=== PATIENT | male | born 1935 | race Hispanic/Latino ===

== ENCOUNTER 2020-01-09 23:25 | Inpatient (IN) | payer MEDICARE, SELFPAY ==
[~2020-01-09] VITALS: Ht 172.7 cm; Wt 89.1 kg
--- OUTSIDE RECORDS SUMMARY | 2020-01-09 23:27 | XMS REPORT | Clinical Summary ---
Author Author [facility] Organization [facility] Address Unknown Phone Unavailable Care Team Providers Care Risk Consulting Treasury Director Name Role Phone Monserrat Oscar MD PCP Nallely Tucker MD PCP [phone] Allergies Comments Active Allergy Reactions Severity Noted Date Sertraline Nausea and 04/29/2007 Vomiting Stomach ache Simvastatin Nausea and 04/06/2008 Vomiting Medications End Date Status Medication Sig Dispensed Refills Start Date Active ASPIRIN 81 MG TAB None Entered 0 Active lancetsIndications: Use once 1 Box 11 Diet-controlled type 2 daily. 4 diabetes mellitus Active Miscellaneous Medical by 2 Each 0 Supply [facility].(Non-Giovanni 7 g; Combo Route) route Handicap placard. Active Miscellaneous Medical by 2 Each 0 06/03 Supply [facility].(Non-Giovanni 7 g; Combo Route) route Handicap placards for impaired mobility. Active esomeprazole (NEXIUM) 40 TAKE 1 90 capsule 1 1 mg delayed release CAPSULE BY 8 capsuleIndications: MOUTH EVERY Hiatal hernia MORNING BEFORE BREAKFAST. Active codeine-guaiFENesin Take 10 mL by 120 mL 0 09/03 (CHERATUSSIN AC) 10-100 mouth 3 times 9 mg/5 mL syrupIndications: daily as Cough, COPD with needed for exacerbation, Upper Cough or respiratory infection Congestion. with cough and congestion Active clotrimazole (LOTRIMIN) 1 Apply 1-2 30 mL 3 % external drops to 9 solutionIndications: affected Onychia of toe, nails 2 times unspecified laterality a day. Use a nail file to keep nails thin. Treatment may take up to 1 year. 02/25/2020 Active tropicamide (MYDRIACYL) Instill 1 15 mL 0 0.5 % ophthalmic Drop in each 9 solutionIndications: eye once as Diabetes mellitus with needed for up hemoglobin A1c goal of to 1 dose 7.0%-8.0% (for poor retina scan image). Active polyethylene glycol Add lukewarm 4000 mL 0 09/15 (GOLYTELY) 236-22.74-6.74 drinking 0 -5.86 gram oral water to the solutionIndications: fill yrn (4 Positive occult stool liters) and blood test shake. Drink as directed by your doctor.. Active budesonide-formoteroL Administer by 6.9 g 6 (SYMBICORT) 80-4.5 inhalation. 0 mcg/actuation take 2 puffs inhalerIndications: COPD twice daily with exacerbation for copd. Active levothyroxine (SYNTHROID) Take 1 tablet 90 tablet 0 50 mcg tabletIndications: by mouth 0 Subclinical every morning hypothyroidism, Memory (before changes breakfast). Active carbamide peroxide Instill 10 30 mL 0 02 (DEBROX) 6.5 % Drops in 0 DropIndications: Impacted right ear cerumen of right ear daily Wait for 15 minutes and clean with Kleenex. Active blood glucose (PRECISION Use once 50 Each 11 0 XTRA TEST STRIPS) test daily. 0 stripsIndications: Diet-controlled type 2 diabetes mellitus Active ipratropium-albuteroL Inhale 2 1 Inhaler 10 04/0 (COMBIVENT RESPIMAT) Puffs by 0 20-100 mcg/actuation Mist mouth every 6 inhalerIndications: COPD hours as with exacerbation needed for Shortness of Breath (shortness of breath). Active blood glucose test daily Use 50 Each 11 //2 02 stripsIndications: Type 2 daily to test 0 diabetes mellitus with blood sugar. other specified complication, without long-term current use of insulin 12/08/2019 Discontinued (Duplicate Orde r) albuterol-ipratropium Administer 2 1 Inhaler 5 (COMBIVENT) 18-103 Puffs by 3 mcg/actuation inhalation 4 AeroIndications: COPD times daily (chronic obstructive as needed for pulmonary disease) Other (SOB). 12/01/2019 Discontinued (Duplicate Orde r) carbamide peroxide Instill 10 15 mL 0 01 (DEBROX) 6.5 % Drops in each 6 DropIndications: Impacted ear daily. cerumen of right ear 12/01/2019 Discontinued (Reorder) ipratropium-albuterol Inhale by 1 Inhaler 10 09/03 (COMBIVENT RESPIMAT) mouth every 4 9 20-100 mcg/actuation hours as MistIndications: COPD needed with exacerbation (shortness of breath). 12/01/2019 Discontinued (Reorder) budesonide-formoterol Administer by 6.9 g 6 (SYMBICORT) 80-4.5 inhalation. 9 mcg/actuation take 2 puffs inhalerIndications: COPD twice daily with exacerbation for copd. 12/01/2019 Discontinued (Reorder) blood glucose (PRECISION Use once 50 Each 11 0 XTRA TEST STRIPS) test daily. 9 stripsIndications: Diet-controlled type 2 diabetes mellitus 04/25/2019 Discontinued (Therapy comple dontae) levothyroxine (SYNTHROID) Take 1 tablet 30 tablet 2 25 mcg tabletIndications: by mouth 9 Acquired hypothyroidism daily Started 04/25/2019. 09/05/2019 benzonatate (TESSALON Take 1 20 capsule 0 08/04 PERLES) 100 mg capsule by 9 capsuleIndications: COPD mouth 3 times with acute exacerbation daily as needed for up to 7 days for Cough. 09/08/2019 amoxicillin (AMOXIL) 500 Take 1 30 capsule 0 1 mg capsuleIndications: capsule by 9 COPD with acute mouth 3 times exacerbation daily for 10 days. 12/08/2019 Discontinued (Reorder) ipratropium-albuteroL Inhale 2 1 Inhaler 10 11/03 (COMBIVENT RESPIMAT) Puffs by 0 20-100 mcg/actuation Mist mouth every 4 inhalerIndications: COPD hours as with exacerbation needed for Shortness of Breath (shortness of breath). Active Problems Problem Noted Date Nontraumatic rotator cuff tear, right 08/31/2019 Back pain of lumbar region with sciatica 06/03/2015 DM II (diabetes mellitus, type II), controlled 09/10 Edentulism, complete 04/30/2012 Osteopenia of the elderly 04/06/2008 GERD (gastroesophageal reflux disease) 12/25/2006 Atrial fibrillation 12/25/2006 Benign prostatic hyperplasia 05/08/2006 Fatty liver Overview: U/Sof abdomen Cholelithiasis Overview: U/S of abdomen TSH elevation Emphysema of lung HH (hiatus hernia) Acid reflux Sleep apnea Kidney stone Encounters Care Team Description Date Type Specialty Monserrat Oscar MD COPD with exacerbation (Primary Dx); Subclinical hypothyroidism; Memory changes; Preventative health care; Impacted cerumen of right ear; Diet-controlled type 2 diabetes mellitus 12/01/2019 Office Visit [facility] Martell Toribio Jr., MD 11/04/2019 Hospital Encounter Martell Toribio Jr., MD Cataract of left eye, unspecified catara ct type (Primary Dx) 09/14/2019 Orders Only [facility] care maintenance (Leny isha Dx) 09/12/2019 Lab Appointment Lab Monserrat Oscar MD Controlled type 2 diabetes mellitus with complication, without long-term current use of insulin (Primary Dx); Pulmonary emphysema, unspecified emphysema type; Nontraumatic rotator cuff tear, right; TSH elevation; Chronic pain of both shoulders 09/11/2019 Office Visit Family Practice Monserrat Oscar MD Chronic pain of both shoulders 08/29/2019 Ancillary Radiology Procedure Monserrat Oscar MD Shelton, George Jr., MD COPD with acute exacerbation (Primary Dx ); Nephropathy screen; Diabetes mellitus with hemoglobin A1c goal of 7.0%-8.0%; Chronic pain of both shoulders; Leg cramping; Nontraumatic rotator cuff tear, right; Encounter for diabetic foot exam 08/29/2019 Office Visit Family Practice Monserrat Oscar MD Controlled type 2 diabetes mellitus with complication, without long-term current use of insulin (Primary Dx); Atrial fibrillation, unspecified type; Pulmonary emphysema, unspecified emphysema type; TSH elevation; Gastroesophageal reflux disease with esophagitis 04/25/2019 Office Visit Family Practice Monserrat Oscar MD Abdominal pain, epigastric 02/10/2019 Hospital Radiology Encounter Monserrat Oscar MD Benign prostatic hyperplasia without low er urinary tract symptoms (Primary Dx); Controlled type 2 diabetes mellitus with complication, without long-term current use of insulin; Gastroesophageal reflux disease without esophagitis; Pulmonary emphysema, unspecified emphysema type 01/20/2019 Office Visit Family Practice Monserrat Oscar MD Type 2 diabetes mellitus without complic ation, without long- term current use of insulin (Primary Dx); Subclinical iodine-deficiency hypothyroidism 01/19/2019 Orders Only Family Practice Monserrat Oscar MD Diarrhea, unspecified type 01/16/2019 Lab Appointment Lab Audra Gonzales RN 01/16/2019 Nurse Triage after 01/08/2019 Immunizations Name Administration Dates Next Due Albuterol 0.083% (3ml) 08/01/2012, 01/02/2008 Influenza Vaccine 08/24/2011, 08/31/2010, 05/2009, 08/02/2009 (Deferred: Unavailable-Patient to retur n for vaccine later), 08/20/2008, 08/06/2007 Influenza Vaccine, 08/14/2017 (Deferred: Patie nt Refused) Seasonal, Injectable Influenza, 09/20/2018 (Deferred: Patie nt Refused), 06/24/2018 Vaccine<FLUCELVAX>(Multi- (Deferred: Patient Refused ) Dose) PCV 13 (Pnuemococcal 06/24/2018 (Deferred: Patie nt Refused) Conjugated 13 Valent) PPV 23 Pneumococcal 06/21/2009, 02/19/2009, Polysaccaride Td Tetanus, diphtheria 11/06/2005 Toxoids Vaccine Tdap (Tetanus Toxoid, 06/24/2018 Reduced Diphtheria Toxoid And Acellular Pertussis, Absorbed) Tropicamide 0.5% Eye-Yeimi 09/11/2019, 02/13/2017, 15ml Family History Medical History Relation Name Comments Heart Brother age 70 Diabetes Mother Relation Name Status Comments Brother Father Mother Social History Date Tobacco Use Types Packs/Day Years Used Former Smoker Cigarettes 0.5 20 Smokeless Tobacco: Former User Tobacco Cessation: Counseling Given: Yes Comments: 6-7 cigarettes a day, quit smoking 08/10 Drinks/Week oz/Week Comments Alcohol Use No Food Insecurity Answer Date Recorded Within the past 12 months, you worried that your Never chris e 03/14/2018 food would run out before you got money to buy more. Within the past 12 months, the food you bought Never true 03/14/2018 just didn't last and you didn't have mo yong to get more. Sex Assigned at Date Recorded Not on file Industry Job Start Date Occupation Not on file Not on file Not on file Travel End Travel History Travel Start No recent travel history available. Last Filed Vital Signs Reading Time Taken Comments Vital Sign 146/77 12/01/2019 9:06 AM CDT Blood Pressure 78 12/01/2019 9:06 AM CDT Pulse 36.4 C (97.5 F) 12/01/2019 9:06 AM CDT Temperature 18 12/01/2019 9:06 AM CDT Respiratory Rate - - Oxygen Saturation - - Inhaled Oxygen Concentration 70.3 kg (155 lb) 12/01/2019 9:06 AM CDT Weight 172.7 cm (5' 8") 12/01/2019 9:06 AM CDT Height 23.57 12/01/2019 9:06 AM CDT Body Mass Index Plan of Treatment Care Team Description Date Type Specialty Keyonna Yordan B, OD [address] [place] [address] [phone] 03/11/2020 Office Visit Ophthalmology Health Maintenance Due Date Last Done Comments DM Foot Exam (Yearly) 08/29/2020 08/29/2019, 09/03, 10/08/2017, Additional history exists DM Microalbumin Urine 08/29/2020 08/29/2019, 03/03, 02/13/2017, Scrn (Yearly) Additional history exists DM Retinal Exam (Yearly) 09/11/2020 09/11/2019, 0 02/14/2018 (Previously completed - External), 02/13/2017, Additional history exists DM HGBA1C (Yearly) 11/30/2020 12/01/2019, 019, 04/21/2019, Additional history exists IMM Pneumococcal Age 63 Completed 06/21/2009 and Up Procedures Comments Procedure Name Priority Date/Time Associated Diag nosis SYPHILIS SCREEN FOR Routine 12/01/2019 Memory jose ramon nges INFECTION 10:07 AM CDT CBC Routine 12/01/2019 Preventative he alth care 10:07 AM CDT FREE T4 Routine 12/01/2019 Subclinical 10:07 AM CDT hypothyroidism Memory changes THYROID STIMULATING Routine 12/01/2019 Subclinica l HORMONE (TSH) 10:07 AM CDT hypothyroidism Memory changes LIVER PROFILE Routine 12/01/2019 Preventative he alth care 10:07 AM CDT CBC/DIFF Routine 12/01/2019 Preventative he alth care 10:07 AM CDT BASIC METABOLIC PANEL Routine 12/01/2019 Preventa tive health care 10:07 AM CDT HEMOGLOBIN A1C Routine 12/01/2019 Preventative he alth care 10:07 AM CDT VIT D, 25-HYDROXY Routine 12/01/2019 Preventative health care 10:07 AM CDT VITAMIN B12 Routine 12/01/2019 Memory changes 10:07 AM CDT PULMONARY - 6 MINUTE WALK Routine 11/04/2019 EXERCISE TEST - COMPLEX 11:40 AM MMI TEACHER PULMONARY FUNCTION TEST Routine 11/04/2019 11:04 AM MMI TEACHER OVA AND PARASITE EXAM Routine 09/12/2019 Health c are maintenance 9:54 AM MMI TEACHER H. PYLORI STOOL AG Routine 09/12/2019 Health care maintenance 9:54 AM MMI TEACHER FECAL OCCULT BLOOD Routine 09/12/2019 Diarrhea, u nspecified 9:40 AM MMI TEACHER type OPHTHALMOLOGY RETINAL Routine 09/11/2019 Diabetes mellitus with SCAN 10:08 AM MMI TEACHER hemoglobin A1c goal of 7.0%-8.0% XRAY SPINE CER 2-3 AP- Routine 08/29/2019 Chronic pain of both LAT- ODONTOID 1:09 PM MMI TEACHER shoulders XRAY CHEST 2 VIEWS Routine 08/29/2019 COPD with a cute 1:09 PM MMI TEACHER exacerbation PHOSPHORUS Routine 08/29/2019 Leg cramping 12:17 PM MMI TEACHER CBC Routine 08/29/2019 Diabetes [facility] with 12:17 PM MMI TEACHER hemoglobin A1c goal of 7.0%-8.0% CBC/DIFF Routine 08/29/2019 Diabetes [facility] us with 12:17 PM MMI TEACHER hemoglobin A1c goal of 7.0%-8.0% HEMOGLOBIN A1C Routine 08/29/2019 Diabetes [facility] us with 12:17 PM MMI TEACHER hemoglobin A1c goal of 7.0%-8.0% COMPREHENSIVE METABOLIC Routine 08/29/2019 Diabet es mellitus with PANEL 12:17 PM MMI TEACHER hemoglobin A1c goal of 7.0%-8.0% MAGNESIUM Routine 08/29/2019 Leg cramping 12:17 PM MMI TEACHER IRON PROFILE Routine 08/29/2019 Leg cramping 12:17 PM MMI TEACHER MICROALBUMIN / CREATININE Routine 08/29/2019 Neph ropathy screen URINE RATIO 12:17 PM MMI TEACHER DIABETIC FOOT EXAM Routine 08/29/2019 Encounter f or diabetic 11:26 AM MMI TEACHER foot exam CBC Routine 04/21/2019 Preventative he alth care 9:24 AM CDT HEMOGLOBIN A1C Routine 04/21/2019 Preventative he alth care 9:24 AM CDT LIVER PROFILE Routine 04/21/2019 Preventative he alth care 9:24 AM CDT THYROID STIMULATING Routine 04/21/2019 Preventati ve health care HORMONE (TSH) 9:24 AM CDT CBC/DIFF Routine 04/21/2019 Preventative he alth care 9:24 AM CDT FREE T4 Routine 04/21/2019 Preventative he alth care 9:24 AM CDT LIPID PROFILE Routine 04/21/2019 Preventative he alth care 9:24 AM CDT XRAY UPPER GI W AIR Routine 02/10/2019 Abdominal pain, CONTRAST 10:13 AM CDT epigastric after 01/08/2019 Results * CBC/Diff (12/01/2019 10:07 AM CDT) Only the most recent of 3 results within the time period is included. WBC 7.5 4.5 - 12.0 K/uL [facility] RBC 5.09 4.60 - 6.20 M/uL [facility] Hemoglobin 15.0 14.0 - 18.0 g/dL [facility] Hematocrit 47.2 40.0 - 54.0 % [facility] MCV 92.7 (H) 82.0 - 92.0 fL [facility] MCH 29.5 27.0 - 31.0 pg [facility] MCHC 31.8 (L) 32.0 - 36.0 g/dL [facility] RDW 52.0 (H) 35.1 - 43.9 fL [facility] Platelet 190 150 - 400 K/uL [facility] Mean Platelet 11.6 9.4 - 12.4 fL [facility] Volume [facility] Percent NRBC 0.0 % [facility] Neutrophil 62.8 34.0 - 67.9 % [facility] Lymphs 24.0 21.8 - 50.0 % [facility] Monocytes 7.5 5.3 - 12.0 % [facility] Eos 4.4 0.8 - 5.0 % [facility] Basos 0.9 0.2 - 1.2 % [facility] Immature 0.4 0.0 - 0.5 % [facility] Granulocytes [facility] Neutrophils 4.68 1.78 - 5.36 K/uL [facility] (Absolute) [facility] Lymphs 1.79 1.32 - 3.57 K/uL [facility] (Absolute) [facility] Monocytes(Absol 0.56 0.30 - 0.82 K/uL [facility] [place] [facility] Eos (Absolute) 0.33 0.04 - 0.54 K/uL [facility] Baso (Absolute) 0.07 0.01 - 0.08 K/uL [facility] Immature Grans 0.03 0.00 - 0.03 K/uL [facility] (Abs) [facility] Absolute NRBC 0.00 K/uL [facility] Specimen Blood Performing Organization Address [facility] one Number [facility] [address] [place] [address] [phone] * Syphilis Screen for Infection (12/01/2019 10:07 AM CDT) [facility] TPA Negative Negative, Equivocal [facility] Final Report Negative Negative [facility] Specimen Blood Performing Organization Address [facility] one Number [facility] [address] [place] [address] [phone] * Vitamin D, 25-Hydroxycalciferol (12/01/2019 10:07 AM CDT) [facility] Vit D, 27.1 (L) 30.0 - 100.0 ng/mL [facility] 25-Hydroxy [facility] Vitamin D Insufficient (A) Sufficient [facility] Interpretation Comment: [facility] Sufficient: >30.0 Insufficient: 20.0 - 29.9 Deficient: <20.0 Specimen Blood Performing Organization Address [facility] one Number [facility] [address] [place] [phone] * Hemoglobin A1C (12/01/2019 10:07 AM CDT) Only the most recent of 3 results within the time period is included. [facility] Hemoglobin A1c 6.6 (H) 4.3 - 6.1 % [facility] Estimated 143 (H) 70 - 110 mg/dL [facility] Average Glucose [facility] Specimen Blood Performing Organization Address [facility] one Number [facility] [address] [place] [phone] * TSH [Thyroid Stimulating Hormone] (12/01/2019 10:07 AM CDT) Only the most recent of 2 results within the time period is included. [facility] TSH 6.26 (H) 0.45 - 5.33 uIU/mL [facility] Specimen Blood Performing Organization Address [facility] one Number [facility] [address] [place] [address] * Free T4 (12/01/2019 10:07 AM CDT) Only the most recent of 2 results within the time period is included. Free T4 0.93 0.64 - 1.42 ng/dl [facility] Specimen Blood Performing Organization Address [facility] one Number [facility] [address] [place] [address] [phone] * Vitamin B12 (12/01/2019 10:07 AM CDT) Vitamin B12 407 See comment pg/mL [facility] Comment: [facility] Normal: 180-914 pg/mL Intermittent: 145-180 pg/mL Deficient: <=145.0 pg/mL Specimen Blood Performing Organization Address [facility] one Number [facility] [address] [place] [address] * Liver Profile (12/01/2019 10:07 AM CDT) Only the most recent of 2 results within the time period is included. Total Protein 6.7 6.0 - 8.3 g/dL [facility] Bilirubin, 0.7 0.2 - 1.2 mg/dL [facility] Total [facility] Alkaline 139 (H) 34 - 104 U/L [facility] Phosphatase [facility] AST 16 13 - 39 U/L [facility] Direct 0.1 0.0 - 0.2 mg/dL [facility] Bilirubin [facility] ALT 15 7 - 52 U/L [facility] Albumin 4.0 (L) 4.2 - 5.5 g/dL [facility] Specimen Blood Performing Organization Address [facility] one Number [facility] [address] [place] [address] * Basic Metabolic Panel (12/01/2019 10:07 AM CDT) Sodium 139 136 - 145 mmol/L [facility] Potassium 4.9 3.5 - 5.1 mmol/L [facility] Chloride 103 98 - 107 mmol/L [facility] CO2 25 21 - 31 mmol/L [facility] Urea Nitrogen 17.0 7.0 - 25.0 mg/dL [facility] Creatinine 1.2 0.7 - 1.3 mg/dL [facility] Glucose 114 (H) 70 - 110 mg/dL [facility] Calcium 8.7 8.6 - 10.3 mg/dL [facility] GFR, Estimated 57 (L) >=90 mL/min/1.73 m2 [facility] Anion Gap 11 5 - 16 mmol/L [facility] Specimen Blood Performing Organization Address [facility] one Number [facility] [address] [place] [address] * PULMONARY - 6 MINUTE WALK EXERCISE TEST - COMPLEX (11/04/2019 11:40 AM MMI TEACHER) Specimen Performing Organization [facility] one Number SMS * PULMONARY FUNCTION TEST (11/04/2019 11:04 AM MMI TEACHER) Specimen Performing Organization [facility] one Number SMS * H. Pylori Stool Ag (09/12/2019 9:54 AM MMI TEACHER) H. pylori Stool Negative Negative [facility] Ag, EIA Specimen Stool - Feces Narrative Performed At Performed at: [facility] [address] [place] [id number] Pharm Tech: Joselin Leung MD, Phone : [phone] Performing Organization Address [facility] one Number [facility] [address] [place] [address] * Ova & Parasite Exam (09/12/2019 9:54 AM MMI TEACHER) Concentrate No ova/parasites detected on No ova/parasites [facility] Smear concentrate smear seen [facility] Trichrome smear No ova/parasites detected on No ova/parasites [facility] trichrome smear seen [facility] Specimen Stool - Feces Performing Organization [facility] one Number [facility] [address] [place] [address] [phone] * Occult Blood ICT (09/12/2019 9:40 AM MMI TEACHER) Occult Blood Positive (A) Negative [facility] Specimen Stool Performing Organization [facility] one Number [facility] * OPHTHALMOLOGY RETINAL SCAN (09/11/2019 10:08 AM MMI TEACHER) RETINAL ALERT (A) [facility] SCAN-FINAL RESULT Right Diabetic None [facility] Retinopathy Right Macular None [facility] Edema Right Other None [facility] Suspected Conditions Right Image Gradable Image [facility] Quality Left Diabetic None [facility] Retinopathy Left Macular None [facility] Edema Left Other Suspected Cataract (A) [facility] Suspected Conditions Left Image Gradable Image [facility] Quality Specimen Narrative Performed At Retinal Study Result for shankar WALKER 83 y/o, M (: 1935, ) presented to [facility] [place] 2] on 09-11-2019 for a retinal imaging study of the left and r ight eyes. Based on the findings of the study, the following is recommended for YOHAN GODDARD Other Suspected Condition Found: Refer to [facility], next available appointment. For Follow-up at [facility]: The patient can be scheduled into any [facility] that has an ope n booking by calling the appointment center. Interpreting Provider's Comments: No comments provided Right eye findings: Normal Result. Ne gative for Diabetic Retinopathy. Left eye findings: Negative for Diabeti c Retinopathy. Other: Suspected Cataract This result was electronically signed Roshan Rojo MD, , Taxonomy: [id number] on 09-11-2019 05:5 1:02 [facility] time. NOTE: Any pathology noted on this wandy betic retinal evaluation should be confirmed by an appropriate ophthalmic examination. Performing Organization Address City/State/Zipcode Ph one Number [facility] * XRAY CHEST 2 VIEWS (08/29/2019 1:09 PM MMI TEACHER) Specimen Impressions Performed At IMPRESSION: SMS 1. Stable appearance of emphysematous changes. 2. No acute thoracic abnormality. Dictated By: Erlinda Sterling MD, 08/29 4:28 PM I have reviewed the study and agree wit h the findings in this report. Signed By: Devon Degroot MD, 08/29/2019 4:50 PM Narrative Performed At EXAMINATION: XRAY CHEST 2 VIEWS SMS INDICATION: chronic cough COMPARISON: Chest radiograph from 10/08/2017. Chest C T on 09/04/2017. FINDINGS: PA and lateral views TUBES and LINES: None. LUNGS and PLEURA: The lungs are hyper inflated. Scattered areas of scarring, most prominent in the apices. Bibasilar atelectasis. Stable opacity along the lateral aspect of the right mid lung, likely secondary to scarring. No pleural effusion or pne umothorax. HEART AND MEDIASTINUM: The cardiomedi astinal silhouette is unremarkable. BONES AND SOFT TISSUES: Mild multilevel degenerative changes of the thoracic spine. UPPER ABDOMEN: No free air under the di aphragm. Procedure Note Interface, Rad/Mammog In - 08/29/2019 4:55 PM MMI TEACHER EXAMINATION: XRAY CHEST 2 VIEWS INDICATION: chronic cough COMPARISON: Chest radiograph from 10/08/2017. Chest CT on 09/04/2017. FINDINGS: PA and lateral views TUBES and LINES: None. LUNGS and PLEURA: The lungs are hyperinflated. Scattered areas of scarring, most prominent in the apices. Bibasilar atelectasis. Stable opacity along the lateral aspect of the right mid lung, likely secondary to scarring. No pleural effusion or pneumothorax. HEART AND MEDIASTINUM: The cardiomediastinal silhouette is unremarkable. BONES AND SOFT TISSUES: Mild multilevel degenerative changes of the thoracic spine. UPPER ABDOMEN: No free air under the diaphragm. IMPRESSION IMPRESSION: 1. Stable appearance of emphysematous c hanges. 2. No acute thoracic abnormality. Dictated By: Erlinda Sterling MD, 08/29/2019 4:28 PM I have reviewed the study and agree with the findings in this report. Signed By: Devon Degroot MD, 08/29/2019 4:50 PM Performing Organization Address City/State/Zipcode Ph one Number SMS * XRAY SPINE CER 2-3 AP- LAT- ODONTOID (08/29/2019 1:09 PM MMI TEACHER) Specimen Impressions Performed At IMPRESSION: SMS 1. Severe multilevel spondylosis of t he cervical spine. 2. 5 mm anterolisthesis of C5 on C6. Dictated By: David Reyes MD, 08/29/2019 2:01 PM I have reviewed the study and agree wit h the findings in this report. Signed By: Tyler Conrad MD, 08/29/2019 2 :24 PM Narrative Performed At EXAM: Cervical Spine X-ray - 3 views SMS HISTORY:R > L BL shoulder pain/ weaknes s COMPARISON: None DISCUSSION: On the lateral view, the cervical spine is visualized from the level of the skull base to C6. Approximately 5 mm anterolisthesis of C 6 and C7. No displaced fracture or compression de formity is identified. Severe multilevel disc space narrowing and osteophytosis and uncovertebral arthrosis. Moderate multi level facet arthrosis and uncovertebral arthrosis. Severe narrowing and sclerosis at the a tlantoaxial joint.. Procedure Note Interface, Rad/Mammog In - 08/29/2019 2:29 PM MMI TEACHER EXAM: Cervical Spine X-ray - 3 views HISTORY:R > L BL shoulder pain/ weakness COMPARISON: None DISCUSSION: On the lateral view, the cervical spine is visualized from the level of the skull base to C6. Approximately 5 mm anterolisthesis of C6 and C7. No displaced fracture or compression deformity is identified. Severe multilevel disc space narrowing and osteophytosis and uncovertebral arthrosis. Moderate multilevel facet arthrosis and uncovertebral arthrosis. Severe narrowing and sclerosis at the atlantoaxial joint.. IMPRESSION IMPRESSION: 1. Severe multilevel spondylosis of the cervical spine. 2. 5 mm anterolisthesis of C5 on C6. Dictated By: David Reyes MD, 08/29/2019 2:01 PM I have reviewed the study and agree with the findings in this report. Signed By: Tyler Conrad MD, 08/29/2019 2:24 PM Performing Organization Address [facility] Ph one Number SMS * Microalbumin / Creatinine Urine Ratio (08/29/2019 12:17 PM MMI TEACHER) Microalbumin, 6.8 <30.0 mg/dL [facility] Creatinine, 163 20 - 370 mg/dL [facility] Urine 41.7 (H) 0.0 - 30.0 mg/g [facility] Micro[facility]in [facility] Specimen Urine - Voided, urine Performing Organization Address [facility] one Number [facility] [address] [place] [address] * Comprehensive Metabolic Panel (08/29/2019 12:17 PM MMI TEACHER) Sodium 139 136 - 145 mmol/L [facility] Potassium 4.8 3.5 - 5.1 mmol/L [facility] Chloride 101 98 - 107 mmol/L [facility] CO2 28 21 - 31 mmol/L [facility] Glucose 141 (H) 70 - 110 mg/dL [facility] Calcium 9.2 8.6 - 10.3 mg/dL [facility] Urea Nitrogen 14.0 7.0 - 25.0 mg/dL [facility] Creatinine 1.3 0.7 - 1.3 mg/dL [facility] Alkaline 137 (H) 34 - 104 U/L [facility] Phosphatase [facility] ALT 16 7 - 52 U/L [facility] AST 16 13 - 39 U/L [facility] Bilirubin, 1.1 0.2 - 1.2 mg/dL [facility] Total [facility] Total Protein 7.2 6.0 - 8.3 g/dL [facility] GFR, Estimated 53 (L) >=90 mL/min/1.73 m2 [facility] Albumin 4.0 (L) 4.2 - 5.5 g/dL [facility] Anion Gap 10 5 - 16 mmol/L [facility] Specimen Blood Performing Organization Address [facility] one Number [facility] [address] [place] [address] * Phosphorus (08/29/2019 12:17 PM MMI TEACHER) Phosphorus 3.1 2.5 - 5.0 mg/dL [facility] Specimen Blood Performing Organization Address [facility] one Number [facility] [address] [place] [phone] * Magnesium (08/29/2019 12:17 PM MMI TEACHER) Magnesium 2.5 1.9 - 2.7 mg/dL [facility] Specimen Blood Performing Organization Address [facility] one Number [facility] [address] [place] [address] * Iron Profile (08/29/2019 12:17 PM MMI TEACHER) Iron 44 (L) 50 - 212 ug/dL [facility] TIBC 338 250 - 450 ug/dL [facility] % Iron Sat 13 % [facility] Transferrin 241.30 203.00 - 362.00 [facility] mg/dL [facility] Specimen Blood Performing Organization Address [facility] one Number [facility] [address] [place] [address] [phone] * DIABETIC FOOT EXAM (08/29/2019 11:26 AM MMI TEACHER) Narrative Performed At Martell Toribio Jr., MD 12:48 AM Diabetic Foot Exam was performed at 12:41 AM. Right foot sensation is normal, right foot pulses are normal, right foot appearance is abnormal. Left foot sensation is n ormal, left foot pulses are normal, left foot appearance is abnormal. LATE ENTRY FOR FOOT EXAM * Lipid Profile (04/21/2019 9:24 AM CDT) Cholesterol 149.0 <=200.0 mg/dL [facility] Triglyceride 118 <150 mg/dL [facility] HDL 47.0 See Reference Range [facility] Narrative. mg/dL [facility] LDL 78 <100 mg/dL [facility] Comment: [facility] Optimal: < 100.0 mg/dL Near Optimal: 120-129 mg/dL Borderline: 130-159 mg/dL High: 160-189 mg/dL Very High: >=190 mg/dL Patient Yes [facility] Fasting? [facility] Specimen Blood Performing Organization Address City/State/[facility] Ph one Number [facility] [address] [place] [address] * XRAY UPPER GI W AIR CONTRAST (02/10/2019 10:13 AM CDT) Specimen Impressions Performed At IMPRESSION: SMS 1. 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 3. Chronic gastritis. Recommend labor atory testing for H. pylori. This [facility] radiology report is a prelimi nary resident dictation until finalized by an attending. Changes to this preliminary report may occur in an additional preliminary or finaliz ed version. Dictated By: Derrick Ricks MD, 9:51 AM I have reviewed the study and agree wit h the findings in this report. Signed By: Shelby Garzon MD, 02/11/2019 10:57 AM Narrative Performed At EXAM: FLUOROSCOPY BARIUM UPPER GI DOUBLE CONTRAST SM S DATE: 02/10/2019 10:13 AM INDICATION: Nausea after meals, associa dontae with epigastric pain. ADDITIONAL INFORMATION: 83 year old mal e with diabetes who experiences food getting stuck. H. pylori stool Ag negative on 12/12/2013. COMPARISON: Upper GI studies from 06/24 and 04/23/2009 TECHNIQUE: Upper GI was performed using double contrast technique orally. IMG 33/FLT 185 sec/TDAP 28.69 G ycm^2 DISCUSSION: Preliminary radiograph: Normal. Swallowing: Normal. No aspiration. Esophagus: Motility: Normal. 1. 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 Stricture is seen at the low er esophageal sphincter, measuring approximately 14.3 mm. Barium tablet measuring 1.25cm did not pass and remained at the level of the s tricture. Findings are suggestive of chronic gastroesophageal reflux. Hiatal hernia: Small hiatal hernia. Gastroesophageal reflux: Moderate. Stomach: Normal. Adequate volume and distention with normal peristalsis and emptying. No mass or ulcer identifi ed. Prominent gastric folds are compatible with chronic gastritis. Duodenum: Normal. No mass or ulcer id entified. Procedure Note Interface, Rad/Mammog In - 02/11/2019 11:02 AM CDT EXAM: FLUOROSCOPY BARIUM UPPER GI DOUBLE CONTRAST DATE: 02/10/2019 10:13 AM INDICATION: Nausea after meals, associated with epigastric pain. ADDITIONAL INFORMATION: 83 year old male with diabetes who experiences food getting stuck. H. pylori stool Ag negative on 12/12/2013. COMPARISON: Upper GI studies from 06/24/2013 and 04/23/2009 TECHNIQUE: Upper GI was performed using double contrast technique orally. IMG 33/FLT 185 sec/TDAP 28.69 Gycm^2 DISCUSSION: Preliminary radiograph: Normal. Swallowing: Normal. No aspiration. Esophagus: Motility: Normal. 1. Anatomy: Cricopharyngeal bar is seen at the upper esophageal sphincter. Stricture is seen at the lower esophageal sphincter, measuring approximately 14.3 mm. Barium tablet measuring 1.25cm did not pass and remained at the level of the stricture. Findings are suggestive of chronic gastroesophageal reflux. Hiatal hernia: Small hiatal hernia. Gastroesophageal reflux: Moderate. Stomach: Normal. Adequate volume and distention with normal peristalsis and emptying. No mass or ulcer identified. Prominent gastric folds are compatible with chronic gastritis. Duodenum: Normal. No mass or ulcer identified. IMPRESSION IMPRESSION: 1. Incomplete opening of the upper esop hageal sphincter, likley secondary to chronic XUAN 2. Short peptic stricture at the level of lower esophageal sphincter, questionable oesophageal shortening and small hiatal hernia are compatible with chronic gastroesophageal reflux, as demonstrated on this study. 3. Chronic gastritis. Recommend laborat ory testing for H. pylori. This [facility] radiology report is a preliminary resident dictation until finalized by an attending. Changes to this preliminary report may occur in an additional preliminary or finalized version. Dictated By: Derrick Ricks MD, 02/11/2019 9:51 AM I have reviewed the study and agree with the findings in this report. Signed By: Shelby Garzon MD, 02/11/2019 10:57 AM Performing Organization Address City/State/Zipcode Ph one Number SMS after 01/08/2019 Insurance Type Payer Benefit Subscriber ID Effective Phone Address Plan / Dates Group MEDICARE MEDICARE xxxxxxxxxxx 2019-P [id number] [place] [address]
--- OUTSIDE RECORDS SUMMARY | 2020-01-09 23:27 | XMS REPORT ---
Author Author [facility] Organization [facility] Address Unknown Phone Unavailable Care Team Providers Care [employer] Teacher Name Role Phone Unavailable Unavailable Problems This patient has no known problems. Allergies, Adverse Reactions, Alerts This patient has no known allergies or adverse reactions. Medications This patient has no known medications. Encounters Start Date/Time End Date/Time Encounter Type Admission Type [facility] Care Department Encounter ID 2019-12-15 00:00:00 2019-12-15 00:00:00 Outpatient [facility] [id number] 2019-11-04 00:00:00 2019-11-04 00:00:00 Outpatient [facility] [id number] 2019-09-12 09:40:12 2019-09-12 09:40:12 Outpatient [facility] [id number] 2019-09-12 00:00:00 2019-09-12 00:00:00 Outpatient [facility] [id number] 2019-09-11 09:48:53 2019-09-11 09:48:53 Outpatient [facility] [id number] 2019-09-11 09:12:46 2019-09-11 09:12:46 Outpatient [facility] [id number] 2019-08-29 13:26:03 2019-08-29 13:26:03 Outpatient [facility] [id number] 2019-08-29 12:53:01 2019-08-29 12:53:01 Outpatient [facility] [id number] 2019-08-29 12:14:25 2019-08-29 12:14:25 Outpatient [facility] [id number] 2019-08-29 10:35:39 2019-08-29 10:35:39 Outpatient [facility] [id number] 2019-08-29 00:00:00 2019-08-29 00:00:00 Outpatient [facility] [id number] 2019-08-29 00:00:00 2019-08-29 00:00:00 Outpatient [facility] [id number] 2019-07-07 00:00:00 2019-07-07 00:00:00 Outpatient [facility] [id number] 2019-06-16 00:00:00 2019-06-16 00:00:00 Outpatient [facility] [id number] 2019-04-25 15:37:04 2019-04-25 15:37:04 Outpatient [facility] [id number] 2019-04-21 09:24:17 2019-04-21 09:24:17 Outpatient [facility] [id number] 2019-04-21 00:00:00 2019-04-21 00:00:00 Outpatient [facility] [id number] 2019-04-18 09:12:55 2019-04-18 09:12:55 Outpatient [facility] [id number] 2019-02-10 08:24:15 2019-02-10 08:24:15 Outpatient [facility] [id number] 2019-01-20 14:12:45 2019-01-20 14:12:45 Outpatient [facility] [id number] 2019-01-16 12:30:32 2019-01-16 12:30:32 Outpatient [facility] [id number] 2018-12-18 00:00:00 2018-12-18 00:00:00 Outpatient [facility] [id number] 2018-11-01 12:17:56 2018-11-01 12:17:56 Outpatient [facility] [id number] 2018-11-01 11:19:53 2018-11-01 11:19:53 Outpatient [facility] [id number] 2018-10-22 15:28:59 2018-10-22 15:28:59 Outpatient [facility] [id number] 2018-10-22 13:44:50 2018-10-22 13:44:50 Outpatient [facility] [id number] 2018-10-01 09:38:27 2018-10-01 09:38:27 Outpatient [facility] [id number] 2018-09-06 00:00:00 2018-09-06 00:00:00 Outpatient [facility] [id number] 2018-09-06 00:00:00 2018-09-06 00:00:00 Outpatient [facility] [id number] 2018-07-16 09:46:25 2018-07-16 09:46:25 Outpatient [facility] [id number] 2018-07-16 00:00:00 2018-07-16 00:00:00 Outpatient [facility] [id number] 2018-07-02 00:00:00 2018-07-02 00:00:00 Outpatient [facility] [id number] 2018-06-25 00:00:00 2018-06-25 00:00:00 Outpatient [facility] [id number] 2018-06-24 09:43:09 2018-06-24 09:43:09 Outpatient [facility] [id number] 2018-05-01 10:54:24 2018-05-01 10:54:24 Outpatient [facility] [id number] 2018-03-22 00:00:00 2018-03-22 00:00:00 Outpatient [facility] [id number] 2018-03-14 12:33:04 2018-03-14 12:33:04 Outpatient [facility] [id number] 2018-03-14 10:04:02 2018-03-14 10:04:02 Outpatient [facility] [id number] 2017-10-12 00:00:00 2017-10-12 00:00:00 Outpatient [facility] [id number] 2017-10-12 00:00:00 2017-10-12 00:00:00 Outpatient [facility] [id number] 2017-10-08 14:33:56 2017-10-08 14:33:56 Outpatient [facility] [id number] 2017-10-08 13:05:29 2017-10-08 13:05:29 Outpatient [facility] [id number] 2017-09-25 10:33:37 2017-09-25 10:33:37 Outpatient [facility] [id number] 2017-09-14 00:00:00 2017-09-14 00:00:00 Outpatient [facility] [id number] 2017-09-04 11:14:02 2017-09-04 11:14:02 Outpatient [facility] [id number] 2017-08-23 00:00:00 2017-08-23 00:00:00 Outpatient [facility] [id number] 2017-08-14 12:00:44 2017-08-14 12:00:44 Outpatient [facility] [id number] 2017-08-14 10:12:13 2017-08-14 10:12:13 Outpatient [facility] [id number] 2017-04-06 00:00:00 2017-04-06 00:00:00 Outpatient [facility] [id number] 2017-02-13 12:25:14 2017-02-13 12:25:14 Outpatient [facility] [id number] 2017-02-13 11:39:40 2017-02-13 11:39:40 Outpatient [facility] [id number] 2017-02-13 08:53:59 2017-02-13 08:53:59 Outpatient [facility] [id number]
--- OUTSIDE RECORDS SUMMARY | 2020-01-09 23:27 | XMS REPORT | Clinical Summary ---
Author Author [facility] Address Unknown Phone Unavailable Care Team Providers Care Emergency Room Clerk Name Role Phone PCP Unavailable Allergies Not on File Medications Not on file Active Problems Not on file Social History Date Tobacco Use Types Packs/Day Years Used Never Assessed Sex Assigned at Date Recorded Not on file Industry Job Start Date Occupation Not on file Not on file Not on file Travel End Travel History Travel Start No recent travel history available. Last Filed Vital Signs Not on file Plan of Treatment Not on file Results Not on fileafter 01/08/2019 Insurance Payer Benefit Subscriber ID Type Phone Address Plan / Group MEDICARE MEDICARE A xxxxxxxxxx Medicare B
[2020-01-09] MEDS ORDERED: ASPIRIN 81 MG CHEW TAB PO ONE (23:45)
[2020-01-10 00:03] LABS: BASOPHILS # (AUTO) 0.1 (0.0-0.1); BASOPHILS % 0.6 % (0.0-1.0); EOSINOPHILS # (AUTO) 0.1 (0.0-0.4); EOSINOPHILS % 1.4 % (0.0-6.0); HEMATOCRIT 47.6 % (38.2-49.6); HEMOGLOBIN 15.5 g/dL (14.0-18.0); LYMPHOCYTES # (AUTO) 1.6 (1.0-3.2); LYMPHOCYTES % 17.3 % (18.0-39.1); MEAN CORPUSCULAR HEMOGLOBIN 28.8 pg (28-32); MEAN CORPUSCULAR HGB CONC 32.6 g/dL (31-35); MEAN CORPUSCULAR VOLUME 88.5 fL (81-99); MONOCYTES # (AUTO) 0.6 (0.2-0.8); MONOCYTES % 6.1 % (4.4-11.3); NEUTROPHILS % 74.2 % (38.7-80.0); PLATELET COUNT 222 x10e3/uL (140-360); RED BLOOD COUNT 5.38 x10e6/uL (4.3-5.7); RED CELL DISTRIBUTION WIDTH 15.2 % (11.7-14.4)
[2020-01-10 00:10] LABS: INR 0.97; PROTHROMBIN TIME 13.5 seconds (11.9-14.5)
[2020-01-10 00:11] LABS: PARTIAL THROMBOPLASTIN TIME 35.8 seconds (23.8-35.5)
[2020-01-10 00:25] LABS: ALANINE AMINOTRANSFERASE 17 IU/L (0-55); ALBUMIN 4.3 g/dL (3.5-5.0); ALBUMIN/GLOBULIN RATIO 1.3 (0.8-2.0); ALKALINE PHOSPHATASE 148 IU/L (40-150); ANION GAP 16.9 mmol/L (8-16); BLOOD UREA NITROGEN 16 mg/dL (7-26); BUN/CREATININE RATIO 11 (6-25); CALCIUM 9.4 mg/dL (8.4-10.2); CARBON DIOXIDE 23 mmol/L (22-29); CHLORIDE 101 mmol/L (98-107); CREATINE KINASE 104 IU/L (30-200); CREATININE, SERUM 1.42 mg/dL (0.72-1.25); EST GLOMERULAR FILTRATION RATE 47 ML/MIN (60-); GLUCOSE 148 mg/dL (74-118); POTASSIUM 4.9 mmol/L (3.5-5.1); SODIUM 136 mmol/L (136-145)
[2020-01-10] MEDS ORDERED: ASPIRIN 81 MG CHEW TAB PO ONE (00:30)
[2020-01-10 00:38] LABS: BILIRUBIN,URINE NEGATIVE (NEGATIVE); CLARITY,URINE CLEAR (CLEAR); COLOR,URINE YELLOW (YELLOW); KETONES,URINE NEGATIVE (NEGATIVE); LEUKOCYTE ESTERASE ,URINE TRACE (NEGATIVE); NITRITE,URINE NEGATIVE (NEGATIVE); PROTEIN,URINE DIPSTICK TRACE (NEGATIVE); URINE UROBILINOGEN 0.2 mg/dL (0.2 - 1)
[2020-01-10 00:39] LABS: BACTERIA,URINE MODERATE /HPF; EPITHELIAL CELLS,URINE MODERATE /LPF
[2020-01-10] MEDS ORDERED: SODIUM CHLORIDE 0.9% 250ML 250 ML ONE ×2 (00:44→03:01)
[2020-01-10] MEDS ORDERED: SODIUM CHLORIDE 0.9% 500ML 500 ML IV ONE (00:45)
[2020-01-10] MEDS ORDERED: ONDANSETRON HCL INJ 2MG/ML 2ML 2 MG/ML VIAL IV STA (00:50)
--- NOTE | 2020-01-10 00:52 | NUR ---
Patient vomited once. ER MD notified. New orders obtained.
--- NOTE | 2020-01-10 01:24 | NUR ---
Patient placed on 2L NC. O2 saturation dropped to 89% while sleeping. Patient states he has a history of sleep apnea. States pain is better at this time. Will continue to monitor closely. Patient in no distress at this time.
--- NOTE | 2020-01-10 01:30 | Diagnostic Imaging Report ---
EXAMINATION: CHEST SINGLE (PORTABLE) INDICATION: Chest pain COMPARISON: None FINDINGS: TUBES and LINES: None. LUNGS: Hyperexpanded lungs. Mild central bronchial wall thickening. Mild peripheral and lower lung haziness. Prominent central pulmonary vascular tree. PLEURA: No pleural effusion or pneumothorax. HEART AND MEDIASTINUM: Cardiac size is mildly enlarged. Aortic calcifications. BONES AND SOFT TISSUES: No acute osseous lesion. Soft tissues are unremarkable. UPPER ABDOMEN: No free air under the diaphragm. IMPRESSION: Findings of bronchitis. Mild peripheral and lower lung haziness can be due to atelectasis or pneumonia. Hyperexpanded lungs can be seen with obstructive pulmonary disease. Mild cardiomegaly and pulmonary vascular congestion.. Signed by: Jose Chan DO on 01/10/2020 1:27 AM
[2020-01-10] MEDS ORDERED: LEVOTHYROXINE50 MCG PO (01:33)
[2020-01-10] MEDS ORDERED: SYMBICORT 80-10.2 GM INH (01:33)
--- NOTE | 2020-01-10 01:35 | NUR ---
Patient heart rate in 40's at this time and has dropped in 30 range. Patient in no distress. MD notified.
[2020-01-10] MEDS ORDERED: IOPAMIDOL 370 MG/ML 200 ML INFUS..BTL INJ ONE (01:37)
[2020-01-10] MEDS ORDERED: SODIUM CHLORIDE 0.9% 50ML 50 ML ONE (01:37)
--- NOTE | 2020-01-10 02:05 | NUR ---
Patient initially refusing CT scan with IV contrast. ER MD at bedside explaining risks and benefits of scan. Patient agreed to have CT scan done.
--- NOTE | 2020-01-10 04:10 | Diagnostic Imaging Report ---
EXAM: CTA of the Thoracic and Abdominal Aorta and Pelvic Arteries WITH and WITHOUT Contrast INDICATION: Acute onset left-sided chest pain radiating to epigastric COMPARISON: None. TECHNIQUE: Multi-detector CT technology was employed. CTA of the abdomen and pelvis was performed after the administration of IV contrast. IV CONTRAST: 100 mL of Isovue 370 ORAL CONTRAST: None COMPLICATIONS: None RADIATION DOSE: Total DLP: 09/04/2001 mGy*cm Estimated effective dose: (DLP x 0.015 x size factor) mSv CTDIvol has been reviewed. It is below the limits set by the Radiation Protocol Committee (RPC). Dose modulation, iterative reconstruction, and/or weight based adjustment of the mA/kV was utilized to reduce the radiation dose to as low as reasonably achievable. FINDINGS: LINES and TUBES: None. LUNGS AND AIRWAYS: Severe emphysema. Mild central bronchial wall thickening. Hyperexpanded lungs. PLEURA: The pleural spaces are clear. HEART AND MEDIASTINUM: The thyroid gland is normal. No mediastinal, hilar or axillary lymphadenopathy. There is no pericardial effusion. Severe biatrial and right ventricular cavity enlargement. Advanced aortic calcific atherosclerosis but normal diameter. No dissection flap, hematoma or aneurysm. Suspect patent foramen ovale with contrast blush hyperdense contrast from the left atrium injuring the right atrial cavity near the atrial septum ( Series 500 image 54). HEPATOBILIARY: No focal hepatic lesions. No biliary ductal dilation. GALLBLADDER: There are stones in the gallbladder. No wall thickening. SPLEEN: No splenomegaly. PANCREAS: No focal masses or ductal dilatation. ADRENALS: No adrenal nodules KIDNEYS/URETERS: Kidneys enhance symmetrically. No hydronephrosis. No cystic or solid mass lesions. No stones. GI TRACT: No abnormal distention, wall thickening, or evidence of bowel obstruction. Colonic diverticulosis without diverticulitis. Appendix is normal. PELVIC ORGANS/BLADDER: Mild prostatomegaly. LYMPH NODES: No lymphadenopathy. VESSELS: Common origin celiac and SMA without obvious stenosis.. PERITONEUM / RETROPERITONEUM: No free air or fluid. BONES: Moderate anterolisthesis of the L5 vertebral body, transitional anatomy at L5-S1, probable canal stenosis.. Degenerative changes throughout spine. Nonhealed right lower rib fracture. SOFT TISSUES: A 2.4 cm rounded epidermal based fluid density in the left anterior upper lateral chest. IMPRESSION: 1. Calcific aortic atherosclerosis but no acute aortic abnormality. 2. Severe emphysema and bronchitis. Severe biatrial and right ventricular cavity enlargement. Pulmonary hypertension. Suspect patent foramen ovale. 3. 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 4. A 2.4 cm rounded epidermal based fluid density in the left upper anterolateral chest is likely a benign epidermal inclusion cyst, correlate with physical exam. 5. Cholelithiasis without evidence of cholecystitis. 6. Moderate anterolisthesis of the L5 vertebral body, transitional anatomy at L5-S1, probable canal stenosis. Signed by: Jose Chan DO on 01/10/2020 4:06 AM
[2020-01-10] MEDS ORDERED: ENOXAPARIN INJ 80 MG/0.8 ML SYR SC STA (04:14)
[2020-01-10] MEDS ORDERED: ATROPINE SULFATE 0.1 MG/ML 10ML SYR ONE (04:15)
[2020-01-10] MEDS ORDERED: ATROPINE SULFATE 1 MG/ML VIAL IV ONE (04:15)
--- NOTE | 2020-01-10 04:15 | NUR ---
Patient noted to have heart rate as low as 26 on youth nutritional monitor. Patient states he feels fine. MD notified and new orders recieved. Patient remains alert and oriented. States chest pain is alot better than arrival. Will continue to monitor closely.
--- NOTE | 2020-01-10 04:30 | NUR ---
Detailed conversation by Dr. Beck regarding importance of blood thinners at this time. Patient stated he was ok with blood thinners being administered at this time.
[2020-01-10] MEDS ORDERED: ONDANSETRON HCL INJ 2MG/ML 2ML 2 MG/ML VIAL IV PRN (04:45)
--- NOTE | 2020-01-10 04:52 | NUR ---
Patient heart rate dropped again to 20s/30s. Md notified. New orders to started patient on dopamine 5mcg/kg/min.
--- OUTSIDE RECORDS SUMMARY | 2020-01-10 05:24 | XMS REPORT | Clinical Summary ---
Author Author [facility] Organization [facility] Address Unknown Phone Unavailable Care Team Providers Care Patient Assessment Coordinator Name Role Phone Monserrat Oscar MD PCP Nallely Tucker MD PCP [phone] Allergies Comments Active Allergy Reactions Severity Noted Date Sertraline Nausea and 04/29/2007 Vomiting Stomach ache Simvastatin Nausea and 04/06/2008 Vomiting Medications End Date Status Medication Sig Dispensed Refills Start Date Active ASPIRIN 81 MG TAB None Entered 0 Active lancetsIndications: Use once 1 Box 11 Diet-controlled type 2 daily. 4 diabetes mellitus Active Miscellaneous Medical by 2 Each 0 Supply [facility].(Non-Giovanni 7 g; Combo Route) route Handicap placard. Active Miscellaneous Medical by 2 Each 0 06/03 Supply [facility].(Non-Giovanni 7 g; Combo Route) route Handicap placards [...] type 2 diabetes mellitus 12/01/2019 Office Visit [facility] Martell Toribio Jr., MD 11/04/2019 Hospital Encounter Martell Toribio Jr., MD Cataract of left eye, unspecified catara ct type (Primary Dx) 09/14/2019 Orders Only [facility] Health care maintenance (Leny isha Dx) 09/12/2019 [...] Audra Gonzales RN 01/16/2019 Nurse Triage after 01/09/2019 Immunizations Name Administration Dates Next Due Albuterol [...] Type Specialty Keyonna Yordan B, OD [address] [place] [address] [phone] 03/11/2020 Office Visit Ophthalmology Health Maintenance Due [...] 11/04/2019 EXERCISE TEST - COMPLEX 11:40 AM DOOR [employer] PULMONARY FUNCTION TEST Routine 11/04/2019 11:04 AM [employer] OVA AND PARASITE EXAM Routine 09/12/2019 Health c are maintenance 9:54 AM DO[employer] TO [employer] H. PYLORI STOOL AG Routine 09/12/2019 Health care maintenance 9:54 AM [employer] FECAL OCCULT BLOOD Routine 09/12/2019 Diarrhea, u nspecified 9:40 AM [employer] type OPHTHALMOLOGY RETINAL Routine 09/11/2019 Diabetes mellitus with SCAN 10:08 AM [employer] hemoglobin A1c goal of 7.0%-8.0% XRAY SPINE CER 2-3 AP- Routine 08/29/2019 Chronic pain of both LAT- ODONTOID 1:09 PM [employer] TO [employer] shoulders XRAY CHEST 2 VIEWS Routine 08/29/2019 COPD with a cute 1:09 PM [employer] exacerbation PHOSPHORUS Routine 08/29/2019 Leg cramping 12:17 PM [employer] CBC Routine 08/29/[address] [facility] with 12:17 PM [employer] hemoglobin A1c goal of 7.0%-8.0% CBC/DIFF Routine 08/29/[address] [facility] with 12:17 PM [employer] TO [employer] hemoglobin A1c goal of 7.0%-8.0% HEMOGLOBIN A1C Routine 08/29/2019 Diabetes [facility] with 12:17 PM [employer] hemoglobin A1c goal of 7.0%-8.0% COMPREHENSIVE METABOLIC Routine 08/29/2019 Diabet es mellitus with PANEL 12:17 PM [employer] hemoglobin A1c goal of 7.0%-8.0% MAGNESIUM Routine 08/29/2019 Leg cramping 12:17 PM [employer] IRON PROFILE Routine 08/29/2019 Leg cramping 12:17 PM [employer] MICROALBUMIN / CREATININE Routine 08/29/2019 Neph ropathy screen URINE RATIO 12:17 PM [employer] DIABETIC FOOT EXAM Routine 08/29/2019 Encounter f or diabetic 11:26 AM [employer] foot exam CBC Routine 04/21/2019 Preventative he [...] pain, CONTRAST 10:13 AM CDT epigastric after 01/09/2019 Results * CBC/Diff (12/01/2019 10:07 AM CDT) [...] 0.56 0.30 - 0.82 K/uL [facility] [place] Eos (Absolute) 0.33 0.04 - 0.54 K/uL [facility] Baso (Absolute) 0.07 0.01 - 0.08 K/uL [facility] Immature Grans 0.03 0.00 - 0.03 K/uL [facility] (Abs) LAB[facility] Absolute NRBC 0.00 K/uL [facility] Specimen Blood Performing Organization Address [facility] one Number [facility] [address] [place] [address] * Syphilis Screen for Infection (12/01/2019 10:07 AM CDT) [facility] TPA Negative Negative, Equivocal [facility] Final Report Negative Negative [facility] Specimen Blood Performing Organization Address [facility] one Number [facility] [address] [place] [address] [phone] * Vitamin D, 25-Hydroxycalciferol (12/01/2019 10:07 AM CDT) [facility] Vit D, 27.1 (L) 30.0 - 100.0 ng/mL [facility] 25-Hydroxy [facility] Vitamin D Insufficient (A) Sufficient [facility] Interpretation Comment: LABORATORY Sufficient: >30.0 Insufficient: 20.0 - 29.9 Deficient: <20.0 Specimen Blood Performing Organization Address [facility] one Number [facility] [address] [place] [phone] * Hemoglobin A1C (12/01/2019 10:07 AM CDT) Only the most recent of 3 results within the time period is included. [facility] Hemoglobin A1c 6.6 (H) 4.3 - 6.1 % [facility] Estimated 143 (H) 70 - 110 mg/dL [facility] Average Glucose LABORATORY Specimen Blood Performing Organization Address [facility] one Number [facility] [address] [place] [address] [phone] * TSH [Thyroid Stimulating Hormone] (12/01/2019 10:07 AM CDT) Only the most recent of 2 results within the time period is included. [facility] TSH 6.26 (H) 0.45 - 5.33 uIU/mL [facility] Specimen Blood Performing Organization Address [facility] one Number [facility] [address] [place] [address] * Free T4 (12/01/2019 10:07 AM CDT) Only the most recent of 2 results within the time period is included. Free T4 0.93 0.64 - 1.42 ng/dl [facility] Specimen Blood Performing Organization Address [facility] one Number [facility] [address] [place] [address] * Vitamin B12 (12/01/2019 10:07 AM CDT) Vitamin B12 407 See comment pg/mL [facility] Comment: LAB[facility] Normal: 180-914 pg/mL Intermittent: 145-180 pg/mL Deficient: <=145.0 pg/mL Specimen Blood Performing Organization Address [facility] one Number [facility] [address] [place] [address] * Liver Profile (12/01/2019 10:07 AM CDT) [...] [facility] Specimen Blood Performing Organization Address [facility] one Number [facility] [address] [place] [address] [phone] * Basic Metabolic Panel (12/01/2019 10:07 AM [...] [facility] Specimen Blood Performing Organization Address [facility] one Number [facility] [address] [place] [address] [phone] * PULMONARY - 6 MINUTE WALK EXERCISE TEST - COMPLEX (11/04/2019 11:40 AM DOOR TO DOOR [employer]ESM[employer]) Specimen Performing Organization [facility] one Number SMS * PULMONARY FUNCTION TEST (11/04/2019 11:04 AM DOOR TO DOOR SALESMAN) Specimen Performing Organization [facility] one Number SMS * H. Pylori Stool Ag (09/12/2019 9:54 AM DOOR TO DOOR SALESMAN) H. pylori Stool Negative Negative [facility] Ag, EIA Specimen Stool - Feces Narrative Performed At Performed at: [facility] [address] [place] [phone] Package Sorter: Joselin Leung MD, Phone : [phone] Performing Organization Address [facility] one Number BT [facility] [address] [place] [address] * Ova & Parasite Exam (09/12/2019 9:54 AM DOOR TO DOOR [employer]ESMAN) Concentrate No ova/parasites detected on No ova/parasites [facility] Smear concentrate smear seen LABORATORY Trichrome smear No ova/parasites detected on No ova/parasites [facility] trichrome smear seen LABORATORY Specimen Stool - Feces Performing Organization [facility] one Number [facility] [address] [place] [address] [phone] * Occult Blood ICT (09/12/2019 9:40 AM DOOR TO DOOR [employer]ESMAN) Occult Blood Positive (A) Negative [facility] Specimen Stool Performing Organization [facility] one Number [facility] * OPHTHALMOLOGY RETINAL SCAN (09/11/2019 10:08 AM DOOR TO DOOR SALESMAN) RETINAL ALERT (A) IRIS SCAN-FINAL RESULT Right [...] y/o, M (: 1935, ) presented to [facility] on 09-11-2019 for a retinal imaging study of the left and r ight eyes. Based on the findings of the study, the following is recommended for YOHAN GODDARD Other Suspected Condition Found: Refer to [facility], next available appointment. For Follow-up at [facility]: The patient can be scheduled into any [facility] that has an ope n booking by calling the appointment center. Interpreting Provider's Comments: No comments provided Right eye findings: Normal Result. Ne gative for Diabetic Retinopathy. Left eye findings: Negative for Diabeti c Retinopathy. Other: Suspected Cataract This result was electronically signed Roshan Rojo MD, , Taxonomy: [id number] on 09-11-2019 05:5 1:02 [facility] time. NOTE: Any pathology noted on this wandy betic retinal evaluation should be confirmed by an appropriate ophthalmic examination. Performing Organization Address City/State/Zipcode Ph one Number IRIS * XRAY CHEST 2 VIEWS (08/29/2019 1:09 PM DOOR TO DOOR SALESMAN) Specimen Impressions Performed At IMPRESSION: SMS 1. [...] Interface, Rad/Mammog In - 08/29/2019 4:55 PM DOOR [employer] DOOR [employer]AN EXAMINATION: XRAY CHEST 2 VIEWS INDICATION: chronic [...] 2-3 AP- LAT- ODONTOID (08/29/2019 1:09 PM DOOR TO DOOR SALESMAN) Specimen Impressions Performed At IMPRESSION: SMS 1. [...] Interface, Rad/Mammog In - 08/29/2019 2:29 PM DOOR TO DOOR SALESMAN EXAM: Cervical Spine X-ray - 3 views [...] MD, 08/29/2019 2:24 PM Performing Organization Address [facility] Ph one Number SMS * Microalbumin / Creatinine Urine Ratio (08/29/2019 12:17 PM DOOR TO DOOR SALESMAN) Microalbumin, 6.8 <30.0 mg/dL [facility] Creatinine, 163 20 - 370 mg/dL [facility] Urine 41.7 (H) 0.0 - 30.0 mg/g [facility] Microalbumin [facility] Specimen Urine - Voided, urine Performing Organization Address [facility] one Number [facility] [address] [place] [address] * Comprehensive Metabolic Panel (08/29/2019 12:17 PM DOOR TO DOOR SALESMAN) Sodium 139 136 - 145 mmol/L [facility] [...] [facility] Specimen Blood Performing Organization Address [facility] one Number [facility] [address] [place] [address] [phone] * Phosphorus (08/29/2019 12:17 PM DOOR TO DOOR SALESMAN) Phosphorus 3.1 2.5 - 5.0 mg/dL [facility] Specimen Blood Performing Organization Address [facility] one Number [facility] [address] [place] [phone] * Magnesium (08/29/2019 12:17 PM DOOR TO DOOR SALESMAN) Magnesium 2.5 1.9 - 2.7 mg/dL [facility] Specimen Blood Performing Organization Address [facility] one Number [facility] [address] [place] [address] * Iron Profile (08/29/2019 12:17 PM DOOR TO DOOR SALESMAN) Iron 44 (L) 50 - 212 ug/dL [facility] TIBC 338 250 - 450 ug/dL [facility] % Iron Sat 13 % [facility] Transferrin 241.30 203.00 - 362.00 [facility] mg/dL [facility] Specimen Blood Performing Organization Address [facility] one Number [facility] [address] [place] [address] [phone] * DIABETIC FOOT EXAM (08/29/2019 11:26 AM DOOR TO DOOR SALESMAN) Narrative Performed At Martell Toribio Jr., MD [...] [facility] HDL 47.0 See Reference Range [facility] Narrative. mg/dL LAB[facility]ATORY LDL 78 <100 mg/dL [facility] Comment: LAB[facility] Optimal: < 100.0 mg/dL Near Optimal: 120-129 mg/dL Borderline: 130-159 mg/dL High: 160-189 mg/dL Very High: >=190 mg/dL Patient Yes [facility] Fasting? LABORATORY Specimen Blood Performing Organization Address City/State[facility] one Number [facility] [address] [place] [address] * XRAY UPPER GI W AIR CONTRAST [...] labor atory testing for H. pylori. This [facility] radiology report is a prelimi nary [...] Address City/State/Zipcode Ph one Number SMS after 01/09/2019 Insurance Type Payer Benefit Subscriber ID Effective Phone Address Plan / Dates Group MEDICARE MEDICARE xxxxxxxxxxx 2019-P [phone] & [id number] [place] [address]
--- OUTSIDE RECORDS SUMMARY | 2020-01-10 05:24 | XMS REPORT | Clinical Summary ---
Author Author [facility] Address Unknown Phone Unavailable Care Team Providers Care Business Computers Teacher Name Role Phone PCP Unavailable Allergies Not [...] Not on file Results Not on fileafter 01/09/2019 Insurance Payer Benefit Subscriber ID Type Phone Address Plan / Group MEDICARE MEDICARE A xxxxxxxxxx Medicare B
--- NOTE | 2020-01-10 05:29 | NUR ---
Dr. Beck states to titrate dopamine down to 2.5 mcg/kg/min at this time due to elevated blood pressure.
[2020-01-10] MEDS: FAMOTIDINE 20 MG/2 ML VIAL IV SCH ×2 (05:33→17:42)
--- NOTE | 2020-01-10 06:05 | NUR ---
Consult called for Dr. Koch and voicemail left at this time.
--- NOTE | 2020-01-10 06:15 | NUR ---
Patient swabbed for COVID and specimen sent to lab.
--- NOTE | 2020-01-10 06:50 | NUR ---
Report given to CAESAR Collins.
[2020-01-10 08:32] LABS: FREE THYROXINE INDEX 1.9324 (1.4-3.8); THYROID STIMULATING HORMONE 1.567 uIU/mL (0.350-4.940)
--- NOTE | 2020-01-10 11:37 | Consultation ---
DATE OF CONSULTATION: Cardiology Consultation HISTORY OF PRESENT ILLNESS: This is an 84-year-old man with a history of atrial fibrillation, not on AV braxton blockers or anticoagulation, prior tobacco use, benign prostatic hypertrophy, COPD, and hypothyroidism, who presented to the emergency department with chest discomfort. He states that yesterday he started to develop left-sided and substernal chest discomfort, [id number] in intensity, occurred at rest, not worsened with exertion, no other exacerbating or relieving factors, associated with some mild shortness of breath and lightheadedness, however, denies any syncopal symptoms. Upon arrival here to the emergency department, he was noted to be in atrial fibrillation with slow ventricular response and was started on a dopamine infusion. Again, the patient is relatively asymptomatic in regard to his bradycardia and his blood pressure was within normal limits. The patient states that he has never had a cardiac workup in the past. REVIEW OF SYSTEMS: A 12-point review of system was conducted and is negative except as stated above in the HPI. PAST SURGICAL HISTORY: None recent. PAST MEDICAL HISTORY: As stated above in the HPI. PAST FAMILY HISTORY: Noncontributory to current illness. ALLERGIES: NO KNOWN DRUG ALLERGIES. MEDICATIONS: See medication reconciliation form. SOCIAL HISTORY: No current illicit drug, alcohol, or tobacco use. PHYSICAL EXAMINATION: VITAL SIGNS: Temperature is 98.7, heart rate is 49, respirations are 16, blood pressure is 113/76, and oxygen saturation 96% on room air. GENERAL: He is a well-appearing, elderly man, lying comfortably in bed, no apparent distress. Alert and oriented x3. HEAD: Normocephalic and atraumatic. EYES: The extraocular muscles are intact. Conjunctivae clear. NECK: No JVD. No bruits. CARDIOVASCULAR: He is irregularly irregular. No murmurs auscultated. Bradycardic. LUNGS: Diminished breath sounds at bases. ABDOMEN: Soft, nontender, and nondistended. EXTREMITIES: No edema. VASCULAR: Pulses are diminished. SKIN: Warm, dry, and intact. NEUROLOGIC: No focal deficits noted on gross examination. LABORATORY DATA: Reviewed, notable for creatinine of 1.42. Troponins are negative x2. BNP is 265. TSH is 1.5. Potassium is 4.9. Chest x-ray shows findings of bronchitis, hyperexpanded lungs, mild cardiomegaly with pulmonary vascular congestion. CTA of the abdomen and chest shows calcific aortic atherosclerosis, severe emphysema, biatrial and right ventricular enlargement, and coronary artery calcifications. A 12-lead electrocardiogram showed atrial fibrillation with slow ventricular response. IMPRESSION: 1. Precordial pain. 2. Atrial fibrillation with slow ventricular response. 3. Coronary artery disease. 4. Chronic obstructive pulmonary disease. 5. Bronchitis. 6. Chronic kidney disease. RECOMMENDATIONS: Continue dopamine for his bradycardia. The patient is relatively asymptomatic and his blood pressure remained stable, so we will not opt for temporary pacemaker placement. Electrophysiology has been consulted and will follow their lead. The patient may require permanent pacemaker placement. According to the patient, he was not on any cardiac medications or AV braxton blockers. He states that he was only on vitamins at home. We will check a 2D echocardiogram. The patient likely will need a stress test given his advanced atherosclerotic disease. COPD treatment per primary team. Continue to monitor creatinine. DO NAVI Chun/JULIO CL /[id number]
[2020-01-10] MEDS: ALBUTEROL/IPRATROPIUM 3 ML NEB NEB SCH ×3 (11:45→19:08)
--- NOTE | 2020-01-10 13:20 | NUR ---
Patient complained about having to urinate frequently. Spoke to Dr. Solomon, majano catheter ordered. Patient refused majano placement. It was also suggested the patient get a PICC line to continue the dopamine drip. The patient refused this as well.
[2020-01-10 14:49] LABS: CREATINE KINASE MB 2.5 ng/mL (0-5.0)
--- NOTE | 2020-01-10 15:47 | History and Physical ---
CHIEF COMPLAINT: The patient is an 84-year-old gentleman, who came in with chest pain. HISTORY OF PRESENTING ILLNESS: This is Mr. Tim Goddard, who is 84-year-old gentleman with no previous medical history except for hypothyroidism, was in usual state of health until the patient started with some kind of chest pain as per the patient about a day prior to admission and apparently the daughters also checked his blood pressures were in the high 200s to 100s, was brought into the emergency room, was found to have atrial fibrillation with slow response and also abdominal pain, admitted for the same. PAST MEDICAL HISTORY: History of questionable COPD, history of hypothyroidism. SOCIAL HISTORY: No EtOH. No IV drug abuse. This patient stopped smoking about 20 years ago as per the patient. No EtOH abuse. No IV drug abuse. MEDICATIONS: He takes Symbicort 80/4.5 inhalation twice a day and levothyroxine 50 mcg daily. PAST SURGICAL HISTORY: Noncontributory. REVIEW OF SYSTEMS: Positive chest pain. No shortness of breath. No nausea, vomiting, or diarrhea; possible abdominal pain. According to him, the patient has started out with some abdominal pain and some dysuria and difficulty urination after the medications were given in the ER. PHYSICAL EXAMINATION: VITAL SIGNS: Temperature is 98.7, pulse of 48, respirations of 18, blood pressure is 129/63, pulse oximetry of 97%. HEENT: Normocephalic, atraumatic. Pupils are reactive to light and accommodation. The patient is edentulous and in good spirits. CVS: S1 and S2. Regular rate. ABDOMEN: Tender in the epigastric area. LUNGS: Decreased air entry in lung bases. EXTREMITIES: No clubbing, no cyanosis, no edema. LABORATORY VALUES: White count is 9.3, hemoglobin of 15.5, hematocrit 47.6, neutrophil count is 74.2. Chemistry shows sodium of 136, BUN of 16, creatinine of 1.42, glucose is 148. BNP was 265. Coags were normal. Serology; coronavirus was pending. IMAGING STUDIES: Chest x-ray initially showed mild cardiomegaly and pulmonary vascular congestion, hyperexpanded lungs consistent with COPD. Abdominal CT was done for abdominal pain, shows calcific aortic atherosclerosis, severe emphysema, and bronchitis. Advance triple-vessel coronary artery calcification, a 2.4 cm epidermal based fluid density in the left upper anterolateral chest, benign epidermal inclusion cyst, cholelithiasis, moderate anterolisthesis of L5 vertebrae. Chest CT thorax shows about the same. ASSESSMENT: Mr. Tim Goddard with: 1. Chest pain, rule out acute coronary syndrome. 2. Chronic obstructive pulmonary disease with exacerbation. 3. Atrial fibrillation with slow ventricular response. 4. Apparent hypothyroidism. 5. Chronic obstructive pulmonary disease exacerbation. PLAN: 1. Go ahead and keep the patient in the hospital ICU. Initial troponin was negative. 2. Acute kidney injury, fluid resuscitation if needed, BUN 16. This is possibly CKD. 3. Hypothyroidism. Check his thyroid function. 4. Hypertension/hyperlipidemia. Check his lipid panel. Plan would be to again keep the patient in the ICU. Monitor his cardiac functions. Troponins will be repeated. An echocardiogram was done and Cardiology consult will be done too. Further recommendation per clinical course. We will continue to monitor the patient. MD MICHAEL Styles/JULIO CL /[id number]
--- NOTE | 2020-01-10 16:57 | NUR ---
Patient placed on a waffle mattress for comfort. Majano catheter placed per patient request. Patient tolerated procedure well. 16F majano draining clear yellow urine.
[2020-01-10] MEDS: ENOXAPARIN INJ 80 MG/0.8 ML SYR SC SCH (17:42)
--- NOTE | 2020-01-10 17:53 | Consultation ---
DATE OF CONSULTATION: ICU Consult. REASON FOR CONSULT: ICU management. CHIEF COMPLAINT: Bradycardia. HISTORY OF PRESENT ILLNESS: Mr. Goddard is an 84-year-old male. He is unable to give me a detailed history. The patient has history of atrial fibrillation. The patient came to the emergency room, the heart rate was in 20s and 30s. The patient was started on dopamine. He declined a central line placement and was started with peripheral line with 5 mg and his heart rate has improved ever since. He is a heavy smoker. He quit smoking 20 years ago smoked for 40+ years. He denies any chest pain, nausea, vomiting, or diarrhea. REVIEW OF SYSTEMS: GENERAL: Denies any fever or chills. HEAD: Denies any head trauma. ENT: Denies any earaches. CVS: Denies any chest pain. RESPIRATORY: Denies any shortness of breath. Rest of the review of systems are negative except as in HPI. PAST MEDICAL HISTORY: COPD. FAMILY AND SOCIAL HISTORY: He does not smoke, does not drink. He has a history of smoking. He smoked for 40 years. PHYSICAL EXAMINATION: VITAL SIGNS: Temperature 98.7, pulse of 47, blood pressure 113/76, respiratory rate of 18. CHEST: Decreased air entry bilaterally. HEART: S1, S2 audible. ABDOMEN: Soft. EXTREMITIES: No pedal edema. NEUROLOGIC: Awake and alert. LABORATORY DATA: Reviewed. Creatinine 1.42. White count is normal. CT of the chest, I reviewed the images it is showing severe emphysema, but no pneumonia and no PE. CT abdomen and pelvis was done which is showing cholelithiasis. ASSESSMENT: Mr. Goddard is an 84-year-old male, who is admitted with bradycardia on dopamine, reported history of chronic obstructive pulmonary disease, severe emphysema on CT chest. Current problems: 1. Symptomatic bradycardia. 2. Emphysema. 3. History of benign prostatic hypertrophy. 4. Possible chronic kidney disease. PLAN: I will continue the patient on dopamine. The patient has declined central line, possibly will need PICC line. He reports having difficulty urination. I will consider Ward catheter. He has been started on Lovenox 1 mg/kg subcu b.i.d. for atrial fibrillation. I will also start the patient on nebulizer treatment and oxygen as needed. Thank you for this consult. MD MANDA Ruiz/ZEE /[id number]
--- NOTE | 2020-01-10 20:44 | Consultation ---
DATE OF CONSULTATION: 01/10/2020 REASON FOR CONSULTATION: Severe symptomatic bradycardia, nonreversible. HISTORY OF PRESENT ILLNESS: In detail, Mr. Goddard is an 84-year-old gentleman with past medical history of COPD, diabetes, and prostate issues, who came in chest pain. He was found to be bradycardic initially in the 20s, then in the 40s. He was in AFib. Dopamine was initiated. Then, heart rate bumped up to 60s and 70s. EP has been consulted. PAST MEDICAL HISTORY: AFib, severe symptomatic nonreversible bradycardia, pulmonary hypertension, COPD, diabetes, prostate problems. SOCIAL HISTORY: The patient lives with boys in [place]. FAMILY HISTORY: Negative for sudden or atrial fibrillation. REVIEW OF SYSTEMS: As above, otherwise negative for fevers, chills, loss of vision or blurry vision, ear pain, ear discharge, headache, numbness. Positive for chest pain, palpitation. Negative for cough, sputum, nausea, vomiting, dysuria, frequency, rash, bruise, bleeding, clots, anxiety, depression, heat or cold intolerance. PHYSICAL EXAMINATION: VITAL SIGNS: Blood pressure is 140/78, heart rate currently is 58 beats per minute. GENERAL: The patient is lying in bed, in no apparent distress. NECK: No lymphadenopathy. Thyroid exam is normal. CARDIOVASCULAR: S1, S2. LUNGS: Clear bilaterally. ABDOMEN: Soft, benign. EXTREMITIES: Warm and dry. NEURO: Nonfocal. SKIN: No new rash. PSYCH: No anxiety or depression. IMAGING DATA: EKG shows AFib, right bundle branch block, heart rate variable between 47 and 60. Echo showed normal EF, mildly dilated right atrium and left atrium, moderate pulmonary hypertension. ASSESSMENT AND PLAN: An 84-year-old gentleman with sick sinus syndrome, atrial fibrillation, nonreversible symptomatic bradycardia, severe, not on any AV braxton blocking agents. He has class I indication for permanent pacing. I discussed with him, described the risks and benefits. He understands and mostly proceed. We will set up for dual-chamber permanent pacemaker and I discussed the case with Dr. Koch. MD SANDRO Okeefe/ZEE /[id number]
--- NOTE | 2020-01-10 22:30 | NUR ---
PT TRANSFERRED TO HOSPITAL BED AT THIS TIME, PT VOICES NO PAIN/DISCOMFORT AT THIS TIME.
--- NOTE | 2020-01-11 00:24 | NUR ---
RESTUBG COMFORTABLY IN BED AT THIS TIME, BED LOCKED IN LOWEST POSITION, CALL LIGHT WITHIN REACH, ENCOURAGED TO CALL FOR ASSISTANCE.
[2020-01-11] MEDS: ALBUTEROL/IPRATROPIUM 3 ML NEB NEB SCH ×4 (00:49→19:35)
--- NOTE | 2020-01-11 05:45 | NUR ---
PT STATES BURNING SENSATION WHEN TRYING TO URINATE, DISPITE THE FACT THAT HE HAS A PROCTOR CATH. CATH NOTED WITH GROSS HEMATURIA AND CLOTS. PROCTOR CATH REMOVED AND PT EXPRESSED SOME RELIEF. DR ELLIOTT NOTIFIED AND ORDERS RECEIVED FOR LAB WORK AND ROCEPHIN 1GM IV Q 24HRS.
[2020-01-11] MEDS: ENOXAPARIN INJ 80 MG/0.8 ML SYR SC SCH (06:14)
[2020-01-11] MEDS: MORPHINE SULFATE 2 MG/ML SYR 1ML IV PRN ×2 (06:30→10:37)
[2020-01-11] MEDS: CEFTRIAXONE SOD 1 GM/NS 50 ML 50 ML IV SCH (06:30)
[2020-01-11] MEDS: FAMOTIDINE 20 MG/2 ML VIAL IV SCH ×2 (06:30→18:47)
[2020-01-11 06:39] LABS: BASOPHILS # (AUTO) 0.1 (0.0-0.1); BASOPHILS % 0.5 % (0.0-1.0); EOSINOPHILS # (AUTO) 0.1 (0.0-0.4); EOSINOPHILS % 0.6 % (0.0-6.0); HEMATOCRIT 46.1 % (38.2-49.6); HEMOGLOBIN 15.2 g/dL (14.0-18.0); LYMPHOCYTES # (AUTO) 1.2 (1.0-3.2); LYMPHOCYTES % 10.8 % (18.0-39.1); MEAN CORPUSCULAR HEMOGLOBIN 29.3 pg (28-32); MONOCYTES # (AUTO) 0.8 (0.2-0.8); MONOCYTES % 7.9 % (4.4-11.3); NEUTROPHILS # (AUTO) 8.5 (2.1-6.9); NEUTROPHILS % 79.7 % (38.7-80.0); PLATELET COUNT 197 x10e3/uL (140-360); RED BLOOD COUNT 5.18 x10e6/uL (4.3-5.7); RED CELL DISTRIBUTION WIDTH 14.8 % (11.7-14.4)
[2020-01-11 06:48] LABS: INR 1.04; PROTHROMBIN TIME 14.2 seconds (11.9-14.5)
[2020-01-11 06:49] LABS: PARTIAL THROMBOPLASTIN TIME 43.2 seconds (23.8-35.5)
[2020-01-11 07:01] LABS: ALANINE AMINOTRANSFERASE 15 IU/L (0-55); ALBUMIN 3.8 g/dL (3.5-5.0); ALBUMIN/GLOBULIN RATIO 1.2 (0.8-2.0); ALKALINE PHOSPHATASE 130 IU/L (40-150); ANION GAP 14.4 mmol/L (8-16); BLOOD UREA NITROGEN 12 mg/dL (7-26); BUN/CREATININE RATIO 12 (6-25); CALCIUM 8.9 mg/dL (8.4-10.2); CARBON DIOXIDE 24 mmol/L (22-29); CHLORIDE 103 mmol/L (98-107); CREATININE, SERUM 0.99 mg/dL (0.72-1.25); EST GLOMERULAR FILTRATION RATE > 60 ML/MIN (60-); GLUCOSE 135 mg/dL (74-118); POTASSIUM 4.4 mmol/L (3.5-5.1); SODIUM 137 mmol/L (136-145)
--- NOTE | 2020-01-11 07:03 | NUR ---
report received from KEISHA Noble. Patient resting comfortably in bed in no acute distress. Dr. Carlin at bedside visiting with the patient. Will continue to monitor heart rate.
[2020-01-11 07:26] LABS: CHOL/HDL RATIO 2.9 (3.9-4.7)
[2020-01-11] MEDS: ASPIRIN 325 MG TAB EC PO SCH (08:40)
--- NOTE | 2020-01-11 08:50 | Progress Note ---
DATE: SUBJECTIVE: This is an 84-year-old man, who came into the hospital with sick sinus syndrome, atrial fibrillation, abdominal pain, dysuria, and today, the patient complains of abdominal pain and burning urination and also bloody urination. The patient does not want to have a Ward catheter in. This is explained to him, but the patient at this point, does not want it. MEDICATIONS: The patient is currently on dopamine drip for sick sinus syndrome. The patient is also on Rocephin q.24 for his proximal UTI. Cultures have been sent. Albuterol Atrovent treatment for COPD and on Lovenox q.12 hours, this dose has been held because of the hematuria and also on aspirin. OBJECTIVE: VITAL SIGNS: Temperature is afebrile, pulse of 56, respirations 17, blood pressure is 130/53, pulse oximetry of 96% on O2 of liters. HEENT: Normocephalic and atraumatic. Pupils are reactive. CVS: S1 and S2 regular. Slow response. ABDOMEN: Tender in the epigastrium and also in the suprapubic area. EXTREMITIES: No clubbing, no cyanosis, no edema. LABORATORY VALUES: White count is 10.64, hemoglobin 13.2, hematocrit 46.2. Chemistry sodium of 137, potassium of 4.4, BUN of 12, creatinine 0.99. Thyroid panel is normal. Cholesterol panel is pending. ASSESSMENT: Mr. Tim Goddard with: 1. Symptomatic bradycardia, sick sinus syndrome. 2. Emphysema. 3. History of benign prostatic hyperplasia with possible urinary tract infection and hematuria. 4. Chronic kidney disease. PLAN: Continue to monitor the patient. The patient needs a pacemaker. Dr. Ricardo has been consulted. Dr. Koch was on the case. Echocardiogram shows EF of 60% to 65% with mildly dilated left atrium. Plan is to continue to monitor the patient, pacemaker, and also may need a Neurology consult at this time, but the patient is reluctant for this and will hold off and possible urologist as an outpatient. MD MICHAEL Styles/MODL /[id number]
--- NOTE | 2020-01-11 10:14 | NUR ---
Patient with complaints of pain in his penis and difficulty urinating. Bladder scan performed at bedside with a lowest result of 199 and highest of 259. Dr. Yunior Carlin called and made aware. Order to consult Dr. Lovelace obtained as well as order to placed majano catheter again and start Flomax. Dr. Lovelace's answering service paged at [phone] with new consult and return call requested. Will wait for Dr. Lovelace's return call prior to majano insertion.
[2020-01-11] MEDS: TAMSULOSIN HCL 0.4 MG CAP PO SCH (10:37)
--- NOTE | 2020-01-11 11:30 | NUR ---
24F 10[address] majano catheter placed per Dr. Lovelace order. Patient expressed discomfort with procedure however tolerated fairly well. Continuous bladder irrigation initiated and flow rate controlled to keep catheter output running clear without clots. Awaiting Dr. Lovelace to round.
--- NOTE | 2020-01-11 17:31 | Progress Note ---
DATE: Cardiology Progress Note SUBJECTIVE: The patient is feeling better. Denies any syncope or lightheadedness. No chest pain. OBJECTIVE: VITAL SIGNS: Temperature is 98.2, heart rate 71, respirations are 20, blood pressure is 134/64, oxygen saturation is 96% on 5 L nasal cannula. GENERAL: A well-appearing, in no apparent distress. Alert and oriented x3. HEENT: Head is normocephalic and atraumatic. CARDIOVASCULAR: Irregularly irregular. Normal rate. LUNGS: Diminished breath sounds at bases. ABDOMEN: Soft, nontender, nondistended. EXTREMITIES: Diminished pulses. LABORATORY DATA: Reviewed. Troponins are negative. IMPRESSION: 1. Precordial pain. 2. Atrial fibrillation with slow ventricular response. 3. Sick sinus syndrome. 4. Coronary artery disease. 5. Chronic obstructive pulmonary disease. 6. Bronchitis. 7. Chronic kidney disease. RECOMMENDATIONS: Continue dopamine for his bradycardia. He remains relatively asymptomatic. However, he does have substantial sick sinus syndrome and will undergo permanent pacemaker implantation tomorrow morning. The patient will need ischemic evaluation prior to discharge. His echocardiogram showed preserved left ventricular systolic function. Continue COPD treatment per primary team. DO NAVI Chun/JULIO CL /[id number]
[2020-01-11 18:08] VITALS: BP 110/87
[2020-01-11 19:00] VITALS: BP 112/59
--- NOTE | 2020-01-11 19:00 | NUR ---
Report received. Assumed care. Assessment done. See interventions. O2 per NC at 2L. Ward cath with continuous bladder irrigation. Dopamine @ 5mcg/kg/min.
[2020-01-11 19:52] VITALS: BP 82/61
[2020-01-11 20:00] VITALS: BP 110/63
--- NOTE | 2020-01-11 21:52 | Consultation ---
DATE OF CONSULTATION: 01/11/2020 Urology Consultation REASON FOR CONSULTATION: Urinary retention and hematuria. HISTORY OF PRESENT ILLNESS: Tim Goddard is an 84-year-old man, who has never seen a urologist. He has had nocturia of 2-3 times per night. He has never been on prostatic medications. He has never seen a urologist. He denies hematuria, dysuria, tract infections, or urolithiasis. He denies any surgery. The patient came into the emergency room. He had some bradycardia. He had lower abdominal discomfort. He was found to be in urinary retention. Ward catheter was placed, 600 mL of urinary retention was obtained. Following this, the patient developed hematuria and bleeding around the catheter. The Ward catheter was subsequently removed. After calling me, I had a new Ward catheter, continuous irrigation large-bore Ward catheter was placed. The patient's urination has since cleared fairly well, and also, his Lovenox was stopped. PAST MEDICAL AND SURGICAL HISTORY: Prediabetes. CURRENT MEDICATIONS: Normally none. Please refer to the [facility] for hospital medications. ALLERGIES: NONE KNOWN. SOCIAL HISTORY: The patient denies smoking, alcohol, or drug use. He quit smoking over 30 years ago. 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 FAMILY HISTORY: Noncontributory to the active urological problems. REVIEW OF SYSTEMS: Discussed as above in history of present illness and past medical history, otherwise negative for all systems. PHYSICAL EXAMINATION: GENERAL: Very pleasant 84-year-old man sitting up in bed, in no apparent distress. VITAL SIGNS: He is currently afebrile. Vital signs are currently stable. ABDOMEN: Soft, nondistended, and nontender without costovertebral angle tenderness. Kidneys not palpable without hepatosplenomegaly. No obvious evidence of hernia. GENITOURINARY: Testes descended bilaterally. The left testis is atrophic. The right testis is unremarkable. The patient has a normal uncircumcised male phallus with normal meatus without any lesion. There is a Ward catheter in place that is draining relatively clear efflux with barely blood tinge on slow continuous bladder irrigation. For the remaining physical examination systems, please refer to the admission history and physical in the chart. LABORATORY STUDIES: CTA of the abdomen and pelvis was performed, it revealed no hydronephrosis. No cystic lesion. The prostate was not remarked on. White blood cell count is 10,640, hemoglobin 15.2, and platelets a 197,000. The patient's creatinine is normal at 0.99, yesterday it was elevated at 1.42 and that was prior to the Ward catheter being placed. Urinalysis showed 6 to 10 wbc's with moderate epithelial cells and moderate bacteria. No urine culture is pending. ASSESSMENT: 1. Obstructive benign prostatic hypertrophy. 2. Urinary retention for 600 mL. 3. Gross hematuria following resolution of retention. 4. Nocturia. 5. Atrophic left testis. 6. Ward catheter in situ. 7. Acute renal failure that improved. 8. Probable urinary tract infection present on admission. PLAN: 1. We will await the placement of a pacemaker. 2. We will start the patient on Flomax following pacemaker placement. 3. We will decide based on the hospital course whether to pursue a voiding trial versus follow the patient up for urodynamics first. Thank you much for involving us in the care of your patient. We are happy to follow along with you as well as an outpatient. Ancelmo Lovelace MD [place]/MODL /[id number]
[2020-01-11 22:00] VITALS: BP 123/72
[2020-01-11 23:00] VITALS: BP 113/95
[2020-01-12] VITALS (33 sets, daily range): BP systolic 79–172; BP diastolic 48–123
[2020-01-12] MEDS: ALBUTEROL/IPRATROPIUM 3 ML NEB NEB SCH ×4 (01:05→19:42)
[2020-01-12] MEDS: ENOXAPARIN INJ 80 MG/0.8 ML SYR SC SCH (04:00)
[2020-01-12 05:24] LABS: BASOPHILS % 0.4 % (0.0-1.0); EOSINOPHILS # (AUTO) 0.1 (0.0-0.4); EOSINOPHILS % 1.1 % (0.0-6.0); HEMOGLOBIN 14.3 g/dL (14.0-18.0); LYMPHOCYTES # (AUTO) 1.1 (1.0-3.2); LYMPHOCYTES % 10.9 % (18.0-39.1); MEAN CORPUSCULAR HGB CONC 33.3 g/dL (31-35); MEAN CORPUSCULAR VOLUME 87.2 fL (81-99); MONOCYTES # (AUTO) 1.1 (0.2-0.8); MONOCYTES % 10.7 % (4.4-11.3); NEUTROPHILS # (AUTO) 7.8 (2.1-6.9); NEUTROPHILS % 76.5 % (38.7-80.0); PLATELET COUNT 172 x10e3/uL (140-360); RED BLOOD COUNT 4.93 x10e6/uL (4.3-5.7); RED CELL DISTRIBUTION WIDTH 15.1 % (11.7-14.4)
[2020-01-12 05:46] LABS: ANION GAP 14.7 mmol/L (8-16); BLOOD UREA NITROGEN 11 mg/dL (7-26); BUN/CREATININE RATIO 11 (6-25); CALCIUM 9.1 mg/dL (8.4-10.2); CARBON DIOXIDE 24 mmol/L (22-29); CHLORIDE 102 mmol/L (98-107); EST GLOMERULAR FILTRATION RATE > 60 ML/MIN (60-); GLUCOSE 123 mg/dL (74-118); POTASSIUM 4.7 mmol/L (3.5-5.1); SODIUM 136 mmol/L (136-145)
[2020-01-12] MEDS: FAMOTIDINE 20 MG/2 ML VIAL IV SCH ×2 (06:32→17:00)
[2020-01-12] MEDS: CEFTRIAXONE SOD 1 GM/NS 50 ML 50 ML IV SCH (06:32)
[2020-01-12 08:10] LABS: BILIRUBIN,URINE NEGATIVE (NEGATIVE); CLARITY,URINE CLEAR (CLEAR); COLOR,URINE YELLOW (YELLOW); KETONES,URINE NEGATIVE (NEGATIVE); LEUKOCYTE ESTERASE ,URINE TRACE (NEGATIVE); NITRITE,URINE NEGATIVE (NEGATIVE); PROTEIN,URINE DIPSTICK NEGATIVE (NEGATIVE); URINE UROBILINOGEN 0.2 mg/dL (0.2 - 1)
[2020-01-12] MEDS: ASPIRIN 325 MG TAB EC PO SCH (08:11)
[2020-01-12] MEDS: TAMSULOSIN HCL 0.4 MG CAP PO SCH (08:11)
[2020-01-12 08:21] LABS: BACTERIA,URINE RARE /HPF; EPITHELIAL CELLS,URINE RARE /LPF; RBC,URINE >50 /HPF (0-5); WBC,URINE (MAN) 0-5 /HPF (0-5)
[2020-01-12] MEDS ORDERED: BACITRACIN 50,000 UNIT VIAL ONE (08:34)
[2020-01-12] MEDS ORDERED: FENTANYL CITRATE/PF 100MCG/2 ML INJ ONE (08:34)
[2020-01-12] MEDS ORDERED: MIDAZOLAM HCL 2 MG/2 ML VIAL ONE (08:34)
[2020-01-12] MEDS ORDERED: SODIUM CHLORIDE 0.9% 500ML 500 ML ONE (08:35)
[2020-01-12] MEDS ORDERED: VANCOMYCIN 1GM/NS 250 ML 0 ML ONE (08:35)
[2020-01-12] MEDS ORDERED: SODIUM CHLORIDE 0.9% 1000ML 2,000 ML ONE (08:35)
[2020-01-12] MEDS ORDERED: LIDOCAINE HCL 2% LOCAL 20 ML VIAL ONE (08:35)
[2020-01-12] MEDS ORDERED: VANCOMYCIN 1GM/NS 250 ML 250 ML ONE (08:38)
--- NOTE | 2020-01-12 09:37 | Progress Note ---
DATE: SUBJECTIVE: An 84-year-old gentleman that came in with atrial fibrillation with slow response, tachy-oracio syndrome or sick sinus syndrome. The patient did also have some BPH and some hematuria after administration of Lovenox. The patient is currently afebrile, very upset with the whole situation of multiple medications and multiple lines, but otherwise normal. PHYSICAL EXAMINATION: VITAL SIGNS: Temperature is 98, pulse of 68 on dopamine drip, respiration of 18, blood pressure is 124/71, pulse oximetry 96%, O2 at 2 L. HEENT: Normocephalic, atraumatic. Pupils are reactive. CVS: S1 and S2 irregular. ABDOMEN: Nontender, nondistended. EXTREMITIES: No clubbing, no cyanosis, no edema. MEDICATIONS: He is on his Rocephin q.24, famotidine 20 mg q.12 hours IV, dopamine being titrated, tamsulosin 0.4 mg, morphine sulfate 2 mg q.6 hours p.r.n., aspirin 325 mg, enoxaparin is on hold, and Zofran 4 mg. LABORATORY VALUES: White count is 10.14, hemoglobin 14.3, hematocrit 43. Chemistries; sodium 136, potassium 4.7, BUN of 11, creatinine of 1.0, glucose is 123, LDL is 71. ASSESSMENT: Mr. Tim Goddard with: 1. Atrial fibrillation with slow ventricular response. 2. Sick sinus syndrome, scheduled for pacemaker placement by Dr. Ricardo. 3. Coronary artery disease with preserved ejection fraction. 4. Chronic obstructive pulmonary disease. 5. Bronchitis. 6. Lower urinary tract obstruction, probably BPH on Flomax and also on Rocephin for presumed UTI. PLAN: Continue with medications. We will schedule for a pacemaker placement, needs to be on anticoagulation. His urodynamic studies can be done outside, we will give a trial of voiding after Ward is removed. Avoid multiple medications, and lastly needs anticoagulation after pacemaker placement. Further recommendation per clinical course. We will continue to monitor the patient. MD DOLORES StylesJ/MODL /[id number]
[2020-01-12] MEDS: B&O 60MG R/S 60 MG SUPP PR PRN (10:03)
--- NOTE | 2020-01-12 14:09 | Operative Report ---
DATE OF PROCEDURE: 01/12/2020 SURGEON: NUPUR RODRIGUEZ DO CLINICAL INDICATION: Mr. Goddard is an 84-year-old male, who presents to the hospital with fatigue and shortness of breath. He is noted to have nonreversible symptomatic bradycardia and will receive a dual-chamber pacemaker. PROCEDURES PERFORMED: 1. Implantation of a [employer] Manuel dual-chamber pacemaker. 2. Left upper extremity venogram. 3. Moderate sedation. PROCEDURE IN DETAIL: After informed consent was obtained, the patient was prepped and draped in usual manner. Conscious sedation was used for this procedure and a total of 2 mg IV Versed and 75 mcg of IV fentanyl were given by the nurse. For a total of 35 minutes, the patient is monitored by myself and nurse. Preprocedure time-out and antibiotics were given to the patient. Left upper extremity venogram was performed which demonstrated patency of left axillary vein to the right atrium. Afterwards, 1% lidocaine was given to the left chest region and 2 cm incision was created over the left chest. A pocket was then created over the pectoralis muscle and hemostasis was confirmed. Then using modified Seldinger technique, 2 uncomplicated venous access were obtained and 2 wires were subsequently inserted into the inferior vena cava. A 6-German peel-away sheath was inserted over one of the wires and a right ventricular pacing lead was inserted through that sheath and brought to the right ventricular apex using pull-out technique. The lead was screwed to myocardium, physical testing supervisor demonstrated adequate threshold and the sheath was peeled. Afterwards, another 6-German peel-away sheath inserted over the other wire and a right atrial pacing lead was inserted through the sheath about the right atrial appendage using a preformed J stylet. The lead was screwed to myocardium, physical testing supervisor demonstrated adequate threshold and sheath was peeled. Both leads and sutured to muscle using 0 silk. The pocket was then irrigated thoroughly with antibiotic solution and hemostasis was then confirmed. Then, the generator was brought into the field and the leads were plugged into the generator and generator and leads were introduced into the pocket and the generator was sutured to muscle using 0 silk, then in a standard 3-layer fashion. The pocket was closed using Vicryl and skin glue was applied. At the conclusion of procedure, the patient tolerated the procedure well without any immediate complications. Fluoroscopy demonstrated normal cardiac silhouette, no evidence of pericardial effusion, no pneumothorax, no retained products within the pocket. IMPLANTED DEVICE: 1. St[employer] Jose Manuel model [id number], serial #[id number]. 2. RA 46, serial #[id number]. 3. RV 52, serial #[id number]. MEASUREMENTS: 1. RA 2 mV (atrial fibrillation), impedance 540 ohms. 2. RV 8.1 mV, impedance 510 ohms, 0.75 V at 0.4 milliseconds. 3. Parameters DDD 60/120. CONCLUSION: 1. Successful placement of [employer] Manuel dual-chamber pacemaker. 2. No immediate complications. POSTPROCEDURE PLAN: 1. Bed rest for 6 hours. The patient can resume his prior diet. 2. Pain medications and antibiotics to be given. 3. One-view chest x-ray and EKG to be performed after the procedure. 4. Left arm to stay in a sling overnight. 5. Arm can be removed from the sling tomorrow morning the patient should use the arm for daily activities not lift more than 10 pounds of weight. While sleeping at night, put the arm in the sling. 6. Incisions site absolutely dry and clean for two weeks. 7. Device to be interrogated tomorrow morning. 8. On discharge, please see Dr. Tee in clinic in two weeks. DO JENNIFER JUAREZ/MODL /[id number]
--- NOTE | 2020-01-12 14:29 | Progress Note ---
DATE: 01/12/2020 Cardiology Progress Note SUBJECTIVE: The patient is status post permanent pacemaker implantation today. He remains on continuous bladder irrigation. He was seen postprocedure. Denies any chest pain or shortness of breath. OBJECTIVE: VITAL SIGNS: Temperature 98 degrees, pulse 69, respiratory rate 13, blood pressure 121/75, oxygen saturation 93% on 2 L nasal cannula. GENERAL: Elderly man, in no acute distress. Awake and alert. LUNGS: Clear to auscultation bilaterally. No wheezes or crackles. CARDIOVASCULAR: Irregularly irregular. Normal rate. No murmur. Normal S1 and S2. ABDOMEN: Soft and nontender. EXTREMITIES: No edema. CARDIAC MEDICATIONS: 1. Aspirin 325 mg p.o. daily. 2. Lovenox 70 mg subcu q.12 hours. LABORATORY DATA: WBC 10.14, hemoglobin 14.3, hematocrit 43, platelets 172. Sodium 136, potassium 4.7, chloride 102, CO2 of 24, BUN 11, creatinine 1. Telemetry was personally reviewed and interpreted, revealing atrial fibrillation. IMPRESSION: 1. Chest pain. 2. Atrial fibrillation with slow ventricular response. 3. Coronary artery disease. 4. Chronic obstructive pulmonary disease. 5. Chronic kidney disease. 6. Bronchitis. RECOMMENDATIONS: The patient is now status post permanent pacemaker. Hold Lovenox given risk of hematoma. We will clarify with electrophysiology timing of anticoagulation re-initiation. He will need ischemic evaluation with pharmacologic nuclear stress test prior to discharge likely tomorrow. His echocardiogram demonstrated preserved LV systolic function. Management of COPD per primary. Thank you for this consult. We will continue to follow. Maribell Berg MD ABS/MODL /[id number]
[2020-01-12] MEDS: MORPHINE SULFATE 2 MG/ML SYR 1ML IV PRN (22:00)
[2020-01-13] VITALS (17 sets, daily range): BP systolic 102–151; BP diastolic 63–130
[2020-01-13] MEDS: ALBUTEROL/IPRATROPIUM 3 ML NEB NEB SCH ×4 (01:20→18:50)
[2020-01-13] MEDS: MORPHINE SULFATE 2 MG/ML SYR 1ML IV PRN ×4 (06:35→23:24)
[2020-01-13] MEDS: FAMOTIDINE 20 MG/2 ML VIAL IV SCH ×2 (06:39→17:28)
[2020-01-13] MEDS: CEFTRIAXONE SOD 1 GM/NS 50 ML 50 ML IV SCH (06:39)
[2020-01-13] MEDS: B&O 60MG R/S 60 MG SUPP PR PRN (08:13)
--- NOTE | 2020-01-13 09:23 | NUR ---
nuclear physics professor injected for nuclear stress test
--- NOTE | 2020-01-13 09:28 | Progress Note ---
DATE: SUBJECTIVE: The patient is an 84-year-old male with preserved LV function, came in with sick sinus syndrome, successfully had a dual-chamber pacemaker placed in yesterday. The patient still complains of abdominal pain on urination. No chest pain. Pain at the incision site is normal. OBJECTIVE: VITAL SIGNS: The patient's temperature is 97.7, pulse of 81, respirations of 13, blood pressure is 102/73. Last recorded pulse oximetry of 96% on 2 L of oxygen. HEENT: Normocephalic and atraumatic. Pupils are reactive. CVS: S1 and S2 normal. Regular rate and rhythm. Pacemaker site normal. No discharge present. ABDOMEN: Nontender and nondistended. EXTREMITIES: No clubbing, no cyanosis, no edema. LABORATORY VALUES: None done today. Blood sugars were running in the 210. AST and ALT, 17 and 15. HDL 50 and cholesterol 71. ASSESSMENT: Mr. Tim Goddard with: 1. Chest pain. 2. Atrial fibrillation with slow ventricular response, sick sinus syndrome. 3. History of coronary artery disease. 4. Chronic obstructive pulmonary disease. 5. Benign prostatic hypertrophy. 6. Urinary retention. 7. Hematuria. 8. Chronic bronchitis. PLAN: Lovenox has been held on. The patient's anticoagulation resumption will be secondary to hematuria and also depending on EP's timing of anticoagulation restart. COPD, the patient is stable at this time. Currently does not need albuterol, Atrovent treatment, but has presently needed. The patient is getting q.6 hours at this time as needed. Aspirin has been continued. The patient is also on tamsulosin for his BPH and also benign prostatic hypertrophy. Plan to continue monitoring the patient. Cardiology has scheduled a nuclear stress test today for the patient for coronary artery disease as mentioned above. His EF is maintained, preserved. Plan as per Cardiology and as for his prostatism, we will continue with Flomax. He is currently also on Rocephin. Microbiological studies, urine cultures are still pending. The patient has been advised to go home with a Ward catheter, but this might be a problem in lieu of his concerns. Further recommendation per clinical course and if he plans to go without a voiding trial, it will be tried before the patient discharges. MD MICHAEL Styles/MODL /[id number]
[2020-01-13] MEDS ORDERED: REGADENOSON 0.4 MG/5 ML SYR IV ONE (09:56)
[2020-01-13] MEDS: ASPIRIN 81 MG ENTERIC COATED PO SCH (12:22)
[2020-01-13] MEDS: TAMSULOSIN HCL 0.4 MG CAP PO SCH (12:22)
--- NOTE | 2020-01-13 13:12 | NUR ---
attempted to call report at [phone]. awaiting call back. portable telemetry box #10 placed on patient.
--- NOTE | 2020-01-13 13:39 | Progress Note ---
DATE: 01/13/2020 Cardiology Progress Note SUBJECTIVE: The patient was complaining of chest pain and shortness of breath today. He was seen for nuclear stress test. OBJECTIVE: VITAL SIGNS: Temperature 97.8 degrees, pulse 75, respiratory rate 14, blood pressure 121/86, and oxygen saturation 95% on 3 L nasal cannula. GENERAL: Elderly man, in no acute distress. Awake and alert. LUNGS: Clear to auscultation bilaterally. No wheezes or crackles. CARDIOVASCULAR: Irregularly irregular. Normal rate. No murmur. Normal S1 and S2. ABDOMEN: Soft and nontender. EXTREMITIES: No edema. CARDIAC MEDICATIONS: Aspirin 81 mg p.o. daily. LABORATORY DATA: None today. Telemetry was personally reviewed and interpreted revealing atrial fibrillation. IMPRESSION: 1. Chest pain. 2. Atrial fibrillation, slow ventricular response. 3. Coronary artery disease. 4. Chronic obstructive pulmonary disease. 5. Chronic kidney disease. 6. Bronchitis. RECOMMENDATIONS: The patient is status post permanent pacemaker device interrogation with normal function this morning. Anticoagulation was discussed with Electrophysiology. Hold anticoagulation for 48 hours post procedure. We will restart anticoagulation tomorrow with Eliquis. Ischemic evaluation today with nuclear stress test. We will review images once available. Echocardiogram demonstrated preserved LV systolic function. Check labs. Management of COPD per primary. Thank you for this consult. We will continue to follow. Maribell Berg MD ABS/MODL /[id number]
[2020-01-13 13:42] LABS: ANION GAP 16.1 mmol/L (8-16); BLOOD UREA NITROGEN 13 mg/dL (7-26); BUN/CREATININE RATIO 12 (6-25); CARBON DIOXIDE 22 mmol/L (22-29); CHLORIDE 102 mmol/L (98-107); EST GLOMERULAR FILTRATION RATE > 60 ML/MIN (60-); GLUCOSE 108 mg/dL (74-118); POTASSIUM 4.1 mmol/L (3.5-5.1); SODIUM 136 mmol/L (136-145)
--- NOTE | 2020-01-13 14:15 | NUR ---
PATIENT ARRIVED TO ROOM 102. VITALS STABLE, DENIES CONCERNS. PATIENT'S DAUGHTER UPDATED ON TRANSFER AND PLAN OF CARE FOR PATIENT. SLING TO LEFT ARM ADJUSTED. WCTM.
[2020-01-14] VITALS (8 sets, daily range): BP systolic 133–162; BP diastolic 72–91
[2020-01-14] MEDS: ALBUTEROL/IPRATROPIUM 3 ML NEB NEB SCH ×4 (00:43→20:10)
[2020-01-14] MEDS: MORPHINE SULFATE 2 MG/ML SYR 1ML IV PRN ×3 (04:37→21:22)
--- NOTE | 2020-01-14 05:28 | NUR ---
Patient continues with Bladder irrigation as ordered . Urine is very light in color. No blood clots observed in majano collection bag. Complains of spasms on and off. Medicated with Morphine PRN as ordered. Tolerating CBI . IV to right wrist discontinued as it was a bit redenned and appeared irritated. No signs of infiltration noted. IV antibiotics continue to infuse in Left AC Peripheral IV access without complications. No antibiotic adverse effects noted. Pacemaker site remains free of signs of infection or irritation. Reminded of left upper extremity movement restrictions. Tele monitor shows Pacemaker on demand, underlying rhythm A-fib. .
[2020-01-14] MEDS: FAMOTIDINE 20 MG/2 ML VIAL IV SCH ×2 (06:00→17:13)
[2020-01-14] MEDS: CEFTRIAXONE SOD 1 GM/NS 50 ML 50 ML IV SCH (06:15)
[2020-01-14 06:18] LABS: BASOPHILS # (AUTO) 0.1 (0.0-0.1); BASOPHILS % 0.6 % (0.0-1.0); EOSINOPHILS # (AUTO) 0.3 (0.0-0.4); EOSINOPHILS % 3.7 % (0.0-6.0); HEMATOCRIT 42.1 % (38.2-49.6); LYMPHOCYTES # (AUTO) 1.4 (1.0-3.2); LYMPHOCYTES % 16.6 % (18.0-39.1); MEAN CORPUSCULAR HEMOGLOBIN 28.9 pg (28-32); MEAN CORPUSCULAR HGB CONC 33.3 g/dL (31-35); MONOCYTES # (AUTO) 0.7 (0.2-0.8); MONOCYTES % 8.4 % (4.4-11.3); NEUTROPHILS # (AUTO) 5.7 (2.1-6.9); NEUTROPHILS % 70.3 % (38.7-80.0); PLATELET COUNT 174 x10e3/uL (140-360); RED BLOOD COUNT 4.84 x10e6/uL (4.3-5.7); RED CELL DISTRIBUTION WIDTH 15.2 % (11.7-14.4)
[2020-01-14 06:39] LABS: ANION GAP 16.9 mmol/L (8-16); BLOOD UREA NITROGEN 15 mg/dL (7-26); BUN/CREATININE RATIO 15 (6-25); CALCIUM 8.1 mg/dL (8.4-10.2); CARBON DIOXIDE 20 mmol/L (22-29); CHLORIDE 105 mmol/L (98-107); CREATININE, SERUM 0.97 mg/dL (0.72-1.25); EST GLOMERULAR FILTRATION RATE > 60 ML/MIN (60-); GLUCOSE 101 mg/dL (74-118); POTASSIUM 3.9 mmol/L (3.5-5.1); SODIUM 138 mmol/L (136-145)
--- NOTE | 2020-01-14 07:00 | NUR ---
Received bedside shift report from off going nurse. Patient in agata condition, no s/s of distress noted. IV assessed asymptomatic and patient, Transparent dressing C/D/I. Bed alarm applied and working. Bed in lowest position and locked. Call light within reach.
--- NOTE | 2020-01-14 08:18 | Progress Note ---
DATE: SUBJECTIVE: The patient is an 84-year-old gentleman, who came in with symptomatic bradycardia with sick sinus syndrome. The patient underwent a pacemaker placement and had a Lexiscan stress test. The patient's findings are not seen. The patient is currently free of chest pain. Still complains of multiple problems including abdominal pain with a Ward catheter. No chest pain. No shortness of breath. No nausea, vomiting, or diarrhea. OBJECTIVE: VITAL SIGNS: Temperature is 97.3, pulse of 83, respirations of 20, blood pressure is 162/75, and pulse oximetry of 94%. HEENT: Normocephalic and atraumatic. Pupils are reactive to light and accommodation. CVS: S1 and S2. Irregular. Pulses in 80s. ABDOMEN: Slightly tender in suprapubic area. EXTREMITIES: No clubbing, no cyanosis, no edema. LABORATORY VALUES: Today's white count is 8.12, hemoglobin of 14, hematocrit 42.0. Sodium of 138, potassium 3.9, BUN 15, creatinine 0.97. BNP was 137.8 yesterday. ASSESSMENT: Mr. Goddard with: 1. Chronic obstructive pulmonary disease. 2. Chest pain. 3. Atrial fibrillation with slow ventricular response. 4. Coronary artery disease. 5. Chronic kidney disease, better. 6. Debility. 7. Benign prostatic hypertrophy. 8. Urinary tract infection. Microbiology, urine culture so far has no growth. We will discontinue the Rocephin. PLAN: We will be starting anticoagulation today. We will follow up with the stress test. Further recommendation per clinical course. We will also have physical therapy work with the patient to see progression or regression of his debility. Further recommendation per clinical course. We will continue to monitor the patient. MD MICHAEL Styles/MODL /[id number]
[2020-01-14] MEDS: ASPIRIN 81 MG ENTERIC COATED PO SCH (08:23)
[2020-01-14] MEDS: TAMSULOSIN HCL 0.4 MG CAP PO SCH (08:23)
--- NOTE | 2020-01-14 09:22 | Diagnostic Imaging Report ---
EXAMINATION: CHEST SINGLE (PORTABLE) INDICATION: Postprocedural COMPARISON: Chest CT 01/10/2020 FINDINGS: LINES/TUBES:Interval placement of dual-lead left pacemaker. LUNGS:Hyperinflated lungs with emphysematous changes. No focal consolidation or pulmonary edema. PLEURA:No pleural effusion or pneumothorax. MEDIASTINUM:Mild cardiomegaly. BONES/SOFT TISSUES:No acute osseous injury. ABDOMEN:No free air under the diaphragm. IMPRESSION: Interval left chest pacemaker placement. No pneumothorax. Hyperinflated lungs with emphysematous changes. Signed by: Rodriguez Maciel MD on 01/14/2020 9:03 AM
--- NOTE | 2020-01-14 09:48 | NUR ---
Pt sleeping soundly and no family present. Park Keeper left a card describing availability of service parts driver and instructions on how to contact a service parts driver. DARRYL DAWSON [employer] Spiritual Care Department O: [phone]
[2020-01-14] MEDS ORDERED: BISACODYL 5 MG TAB EC PO PRN (12:15)
[2020-01-14] MEDS ORDERED: BISACODYL 10 MG SUPP PR NR (14:00)
--- NOTE | 2020-01-14 18:30 | Myoview Stress Test ---
DATE OF STUDY: 01/12/2020 14:01:00 Stress Test - Treadmill ONLY PROCEDURE TITLE: Rest/stress single isotope SPECT imaging with pharmacologic stress and gated SPECT imaging. INDICATION: Chest pain. PROCEDURE IN DETAIL: Pharmacologic stress testing was performed with regadenoson per protocol. The heart rate was 78 beats per minute at rest and increased to 110 beats per minute during the regadenoson infusion. The resting blood pressure was 166/82 mmHg and decreased to 148/89 mmHg, which is a normal response. The resting electrocardiogram demonstrated atrial fibrillation with right bundle-branch block. There were no ST-segment changes suggestive of myocardial ischemia. Myocardial perfusion imaging was performed at rest following the injection of 11 mCi of tetrofosmin. At peak pharmacologic effect, the patient was injected with 33 mCi of tetrofosmin. Gated post-stress tomographic imaging was performed. FINDINGS: The overall quality of study is fair. Left ventricular cavity is noted to be normal size on the rest and stress studies. SPECT images demonstrate homogeneous tracer distribution throughout the myocardium. Gated SPECT imaging reveals normal myocardial thickening and wall motion. The left ventricular ejection fraction was calculated to be greater than 70%. IMPRESSION: Myocardial perfusion imaging is normal. Overall left ventricular systolic function was normal without regional wall motion abnormalities. Maribell Berg MD ABS/MODL /[id number]
--- NOTE | 2020-01-14 19:13 | NUR ---
Patient in stable condition, no s/s of distress noted. IV assessed asymptomatic and patient, Transparent dressing C/D/I. Bed alarm applied and working. Bed in lowest position and locked. Call light within reach.
--- NOTE | 2020-01-14 21:00 | Progress Note ---
DATE: 01/14/2020 Cardiology Progress Note SUBJECTIVE: The patient denies chest pain or shortness of breath. OBJECTIVE: VITAL SIGNS: Temperature 98 degrees, pulse 85, respiratory rate 20, blood pressure 133/91, and oxygen saturation 95% on 2 L nasal cannula. GENERAL: Elderly man, in no acute distress, awake and alert. LUNGS: Clear to auscultation bilaterally. No wheezes or crackles. CARDIOVASCULAR: Irregularly irregular. Normal rate. No murmur. Normal S1 and S2. ABDOMEN: Soft and nontender. EXTREMITIES: No edema. CARDIAC MEDICATIONS: Aspirin 81 mg p.o. daily. LABORATORY DATA: WBC 8.12, hemoglobin 14, hematocrit 42.1, and platelets 174. Sodium 138, potassium 3.9, chloride 105, CO2 of 20, BUN 15, and creatinine 0.97. TELEMETRY: Personally reviewed and interpreted, revealing atrial fibrillation. IMPRESSION: 1. Chest pain. 2. Atrial fibrillation with slow ventricular response. 3. Coronary artery disease. 4. Chronic obstructive pulmonary disease. 5. Chronic kidney disease. 6. Bronchitis. RECOMMENDATIONS: The patient is status post permanent pacemaker. Device interrogation demonstrated normal function. Resume Eliquis today. Nuclear stress test was performed without evidence of ischemia. Echocardiogram demonstrated preserved LV systolic function. No further cardiac evaluation is indicated at this time. Management of COPD per primary. Thank you for this consult. We will continue to follow. Maribell Berg MD ABS/MODL /[id number]
[2020-01-15] VITALS: BP 149/78
[2020-01-15] MEDS: ALBUTEROL/IPRATROPIUM 3 ML NEB NEB SCH ×3 (02:00→13:08)
[2020-01-15 04:00] VITALS: BP 144/73
[2020-01-15] MEDS: B&O 60MG R/S 60 MG SUPP PR PRN (06:39)
[2020-01-15] MEDS: FAMOTIDINE 20 MG/2 ML VIAL IV SCH (06:39)
--- NOTE | 2020-01-15 07:00 | NUR ---
Received bedside shift report from off going nurse. Patient in stable condition, no s/s of distress noted. IV assessed asymptomatic and patient, Transparent dressing C/D/I. Bed alarm applied and working. Bed in lowest position and locked. Call light within reach.
[2020-01-15 07:29] VITALS: BP 163/86
[2020-01-15 08:03] VITALS: BP 163/86
[2020-01-15] MEDS: ASPIRIN 81 MG ENTERIC COATED PO SCH (08:07)
[2020-01-15] MEDS: TAMSULOSIN HCL 0.4 MG CAP PO SCH (08:07)
[2020-01-15] MEDS: MORPHINE SULFATE 2 MG/ML SYR 1ML IV PRN (08:09)
--- NOTE | 2020-01-15 08:23 | Progress Note ---
DATE: SUBJECTIVE: An 84-year-old male, who came in with atrial fibrillation with slow ventricular response, status post chamber pacemaker. The patient had a stress test done. The nuclear stress test did not show any evidence of ischemia, preserved left ventricular systolic function. The patient is complaining of abdominal pain secondary to the Ward, BPH, and some amount of hematuria noted by nurse. OBJECTIVE: VITAL SIGNS: Temperature is 98.4, pulse of 79, respirations of 20, blood pressure is 144/73, pulse oximeter 94%. HEENT: Normocephalic and atraumatic. Pupils are reactive to light and accommodation. CVS: S1 and S2 normal. Irregular. Rate is normal. ABDOMEN: Tender in the suprapubic area in the left lower quadrant. EXTREMITIES: No clubbing, no cyanosis, no edema. LABORATORY VALUES: CBC not done. Chemistries; BUN and creatinine normalized. Coags are essentially normal. ASSESSMENT: Mr. Tim Goddard with: 1. Atrial fibrillation with slow ventricular response. 2. Sick sinus syndrome, status post dual-chamber pacemaker. 3. Coronary artery disease, stable. LV function is preserved. 4. Chronic obstructive pulmonary disease. 5. Urinary obstruction with benign prostatic hyperplasia .. PLAN: Continue the same program. Eliquis needs to be resumed. We will leave this up to Cardiology. We will probably have to also remove the Ward catheter in lieu of his multiple complaints of abdominal pain. Voiding trial will be done and possible discharge tomorrow. Further recommendation per clinical course. We will continue to monitor the patient and we will also check blood work tomorrow for stability of hemoglobin and hematocrit. MD MICHAEL Styles/MODL /[id number]
--- NOTE | 2020-01-15 09:26 | NUR ---
Discontinued the Ward per MD orders. Patient tolerated the removal well, urinal at bedside. Educated the patient on letting the nurse know about voiding.
[2020-01-15 11:27] VITALS: BP 159/72
--- NOTE | 2020-01-15 11:54 | Progress Note ---
DATE: 01/15/2020 Cardiology Progress Note SUBJECTIVE: The patient denies chest pain or shortness of breath. OBJECTIVE: VITAL SIGNS: Temperature 97.5 degrees, pulse 76, respiratory rate 20, blood pressure 163/86, oxygen saturation 98% on 2 L nasal cannula. GENERAL: Elderly man, in no acute distress. Awake and alert. LUNGS: Clear to auscultation bilaterally. No wheezes or crackles. CARDIOVASCULAR: Normal rate. Irregularly irregular. No murmur. Normal S1, S2. ABDOMEN: Soft and nontender. EXTREMITIES: No edema. CARDIAC MEDICATIONS: Aspirin 81 mg p.o. daily. LABS: None today. TELEMETRY: Personally reviewed and interpreted, revealing atrial fibrillation. IMPRESSION: 1. Chest pain. 2. Atrial fibrillation with slow ventricular response. 3. Coronary artery disease. 4. Chronic obstructive pulmonary disease. 5. Chronic kidney disease. 6. Bronchitis. RECOMMENDATIONS: The patient is status post permanent pacemaker. His nuclear stress test was without evidence of ischemia. Resume Eliquis. Pressure dressing can be removed. Echocardiogram demonstrated preserved LV systolic function. No further cardiac evaluation is indicated at this time. Management of COPD per primary. We will add losartan as blood pressure is not well controlled. Thank you for this consult. We will continue to follow. Maribell Berg MD ABS/MODL /[id number]
--- NOTE | 2020-01-15 12:46 | NUR ---
patient voided 10mls bladder was scanned with no residual urine in the bladder.
[2020-01-15] MEDS ORDERED: FLOMAX0.4 MG PO (14:52)
[2020-01-15] MEDS ORDERED: ELIQUIS5 MG PO (14:54)
--- NOTE | 2020-01-15 14:58 | NUR ---
Nutrition Screen Note RD Recommendation for Physician: - Continue Cardiac diet - Recommend Ensure BID per pt request Plan of Care: RD following, monitoring for tolerance and adequacy Nutrition reason for involvement: LOS Primary Diagnose(s): acute abdominal pain, afib PMH: CAD, COPD, SSS, pacemaker Ht: 68 in Wt: 196.5 lb BMI: 29.9 kg/m2 IBW: [address] Assessment: (01/14) 84 YOM admitted for acute abdominal pain and afib, seen today for LOS. Pt reports poor appetite since admit, noted decline in intake the past few days. Pt requesting "something for appetite, can I take something"- pt receptive to Ensure Compact- RD to order per pt request. Encouraged meal intake. Pt reports continued mild abdominal pain, majano removed today. Pt denies any GI distress. Chart reviewed. Labs and meds reviewed. Will continue to monitor. Current Diet: Cardiac Malnutrition Evaluation (01/14) The patient does not meet criteria for a specified degree of malnutrition at this time. Will re-evaluate at follow-up as appropriate. Diet Education Needs Assessment: Diet education not indicated. Diet tolerance: tolerating po Nutrition Care Level: low Signed: Marisa Wade RD, LD, [facility]
--- NOTE | 2020-01-15 15:00 | NUR ---
Patient voided dark valeria colored urine 30ml Bladder scanned with no residual in the bladder. No complaints of pressure or feeling of urgency.
[2020-01-15] MEDS ORDERED: LOSARTAN POTASS25 MG PO (15:25)
--- NOTE | 2020-01-15 15:26 | NUR ---
HOME 02 EVAL DONE AND PT QUALIFIES FOR OXYGEN CHOICE LETTER SIGNED BY PT FOR [facility] LETTER IN CHART AND COPY TO PT IN [facility]ARE [facility]OLDER CM CALLED [facility] [phone] FAX: [phone] CLINICALS FAXED; CONFIRMATION REC'D PORTABLE 02 DELIVERED TO PT'S ROOM PT TO CALL [facility] FOR CONCENTRATOR WHEN HE ARRIVES HOME P.T. RECOMMENDS HOME HEALTH AND PT REFUSES
[2020-01-15 15:52] VITALS: BP 113/75
--- NOTE | 2020-01-15 16:58 | NUR ---
Patient discharged home with daughter. Patient off the unit @ 165 via wheelchair accompanied by PCT and [facility]. Patient in stable condition., No s/s of distress noted. No pain voiced. IV access removed with tip intact. All personal items taken with patient and daughter. Discharge teaching and instruction given to the patient and daughter. Patient and daughter verbalized understanding. Addendum: 01/15/20 at 3 by Marcy Yepez RN pacemaker dressing changed Cleaned and placed a 4x4 with paper tape sling applied per Dr. Berg. Patient left with home oxygen at 2 liters patient and daughter taught how to work and apply the oxygen.
[2020-01-15] MEDS ORDERED: APIXABAN 5 MG TABLET PO SCH (17:00)
[2020-01-16] MEDS ORDERED: LOSARTAN POTASSIUM 25 MG TAB PO SCH (09:00)
== END 2020-01-15 17:01 | disposition home or self-care (01) | DRG 243 ==
LOC: ER 23:25 → ERHOLD 01-10 04:58 → ICU 01-11 16:37 → MED/SURG 01-13 14:05
PROVIDERS: ADMIT Family Medicine; ATTEND Family Medicine
PROC: 0JH606Z Insertion of Pacemaker, Dual Chamber into Chest Subcutaneous Tissue and Fascia, Open Approach (ICD-10-PCS; principal; 2020-01-12)
PROC: 02H63JZ Insertion of Pacemaker Lead into Right Atrium, Percutaneous Approach (ICD-10-PCS; 2020-01-12)
PROC: 02HK3JZ Insertion of Pacemaker Lead into Right Ventricle, Percutaneous Approach (ICD-10-PCS; 2020-01-12)
DX: I48.20 Chronic atrial fibrillation, unspecified (principal); J44.1 Chronic obstructive pulmonary disease with (acute) exacerbation; N39.0 Urinary tract infection, site not specified; N17.9 Acute kidney failure, unspecified; I25.110 Atherosclerotic heart disease of native coronary artery with unstable angina pectoris; N13.8 Other obstructive and reflux uropathy; E03.9 Hypothyroidism, unspecified; N18.9 Chronic kidney disease, unspecified; E78.5 Hyperlipidemia, unspecified; I12.9 Hypertensive chronic kidney disease with stage 1 through stage 4 chronic kidney disease, or unspecified chronic kidney disease; R10.30 Lower abdominal pain, unspecified; N40.1 Benign prostatic hyperplasia with lower urinary tract symptoms; R33.8 Other retention of urine; R35.1 Nocturia; N50.0 Atrophy of testis; R31.0 Gross hematuria; Z87.891 Personal history of nicotine dependence; I49.5 Sick sinus syndrome
CPT/HCPCS: 33208; 36415; 51700; 51703; 71045; 71275; 74174; 78452; 80048; 80053; 80061; 81001; 82550; 82553; 82948; 83036; 83690; 83880; 84436; 84443; 84479; 84484; 85025; 85610; 85730; 87086; 87635; 93005; 93017; 93306; 94640; 97139; 99152; 99153; 99285; A9502; C1763; J0696; J1650; J2001; J2250; J2270; J2405; J3010; J3370; J7030; J7040; J7050; Q9967

== ENCOUNTER 2021-09-29 20:44 | Emergency (ER) | payer MEDICARE, SELFPAY ==
[~2021-09-29] VITALS: Ht 172.7 cm; Wt 88.9 kg
[~2021-09-29 20:44] MED LIST: ELIQUIS5 MG PO; FLOMAX0.4 MG PO; LEVOTHYROXINE50 MCG PO; LOSARTAN POTASS25 MG PO; SYMBICORT 80-10.2 GM INH
[2021-09-29] MEDS ORDERED: SODIUM CHLORIDE 0.9% 500ML 500 ML IV STA (20:53)
[2021-09-29] MEDS ORDERED: ONDANSETRON HCL INJ 2MG/ML 2ML 2 MG/ML VIAL IV STA ×2 (21:02→21:22)
[2021-09-29] MEDS ORDERED: MECLIZINE HCL 12.5 MG TAB PO STA (21:05)
[2021-09-29 21:14] LABS: BASOPHILS % 0.3 % (0.0-1.0); EOSINOPHILS % 0.1 % (0.0-6.0); HEMOGLOBIN 14.8 g/dL (14.0-18.0); LYMPHOCYTES # (AUTO) 0.9 (1.0-3.2); LYMPHOCYTES % 8.9 % (18.0-39.1); MEAN CORPUSCULAR HEMOGLOBIN 29.7 pg (28-32); MEAN CORPUSCULAR HGB CONC 32.2 g/dL (31-35); MEAN CORPUSCULAR VOLUME 92.2 fL (81-99); MONOCYTES # (AUTO) 0.4 (0.2-0.8); MONOCYTES % 3.7 % (4.4-11.3); NEUTROPHILS # (AUTO) 8.6 (2.1-6.9); NEUTROPHILS % 86.6 % (38.7-80.0); PLATELET COUNT 261 x10e3/uL (140-360); RED BLOOD COUNT 4.99 x10e6/uL (4.3-5.7); RED CELL DISTRIBUTION WIDTH 13.8 % (11.7-14.4)
[2021-09-29 21:32] LABS: ALBUMIN 3.8 g/dL (3.5-5.0); ALBUMIN/GLOBULIN RATIO 1.1 (0.8-2.0); ANION GAP 17.5 mmol/L (8-16); CALCIUM 9.1 mg/dL (8.4-10.2); CREATININE, SERUM 1.11 mg/dL (0.72-1.25); POTASSIUM 4.5 mmol/L (3.5-5.1)
[2021-09-29 21:38] LABS: CREATINE KINASE MB 2.1 ng/mL (0-5.0)
[2021-09-29] MEDS ORDERED: SODIUM CHLORIDE 0.9% 50ML 50 ML ONE (22:09)
[2021-09-29] MEDS ORDERED: IOPAMIDOL 370 MG/ML 200 ML INFUS..BTL INJ ONE (22:09)
[2021-09-30] MEDS ORDERED: AZITHROMYCIN250 MG PO (00:06)
[2021-09-30] MEDS ORDERED: PREDNISONE20 MG PO (00:06)
[2021-09-30] MEDS ORDERED: VENTOLIN HFA18 GM INH (00:06)
[2021-09-30] MEDS ORDERED: MECLIZINE HCL12.5 MG PO (00:07)
[2021-09-30] MEDS ORDERED: ONDANSETRON ODT4 MG PO (00:07)
[2021-09-30 00:14] VITALS: BP 164/88
== END 2021-09-30 00:42 | disposition home or self-care (01) ==
LOC: ER 20:54
DX: U07.1 COVID-19 (principal); R11.2 Nausea with vomiting, unspecified; R42 Dizziness and giddiness; R10.9 Unspecified abdominal pain; E11.65 Type 2 diabetes mellitus with hyperglycemia; I10 Essential (primary) hypertension; J44.9 Chronic obstructive pulmonary disease, unspecified; I48.91 Unspecified atrial fibrillation; E03.9 Hypothyroidism, unspecified
CPT/HCPCS: 36415; 70450; 71045; 74176; 80053; 82550; 82553; 83880; 84484; 85025; 93005; 99284; J2405; J7040; J8597; Q9967; U0002